=== PATIENT | female | born 1945 | race Caucasian/White ===

== ENCOUNTER 2019-05-26 16:07 | Emergency (ER) | payer MEDICARE, OTHER ==
[~2019-05-26] VITALS: Ht 145 cm; Wt 73.3 kg
--- NOTE | 2019-05-26 16:58 | ED Fall/Injury ---
General Chief Complaint: Trauma-Non Activation Stated Complaint: HEAD LAC, PT FELL Nursing Triage Note: Patient c/o of laceration to right side of her scalp and right knee pain. States that she has fallen multiple times over the past couple of days. Today she reports that she felt as if she blacked out for a second hit but was not certain if she did or not. She then hit her head on the corner of the wall and fell onto her right knee. She states that she twisted her back on Friday when she fell and hit her knee that day too. She reports that her she has a torn patella tendon and it causes her knee to give out and that is generally when she falls. Source: patient Exam Limitations: no limitations History of Present Illness Date Seen by Provider: May 26, 2019 Time Seen by Provider: 16:40 Initial Comments The patient is a pleasant 73-year-old female who presents for evaluation of a closed head injury as well as some right knee pain after a fall. She states that back in November she had a knee replacement at and that she is having competitions of her patellar tendon on the right. She states that she needs to have her patellar tendon replaced and that it sometimes slides out of the way and causes her to fall. She states that over the last few days she is fallen multiple times. She thinks that she may have blacked out briefly during one of these falls but is unsure. Today she hit her head on a corner of a wall and fell onto her right knee. She is alert and oriented 4, calm, and appears to be in no distress this time. Allergies and Home Medications Patient Home Medication List Home Medication List Reviewed: Yes Review of Systems Review of Systems Constitutional: no symptoms reported Eyes: No Symptoms Reported Ears, Nose, Mouth, Throat: no symptoms reported Respiratory: no symptoms reported Cardiovascular: no symptoms reported Gastrointestinal: no symptoms reported Genitourinary: no symptoms reported Musculoskeletal: other (right knee pain) Skin: other (scalp laceration) Psychiatric/Neurological: No Symptoms Reported All Other Systems Reviewed Negative Unless Noted: Yes Past Wyyyvll-Ayrxhm-Tadwzc Hx Past Med/Social Hx: Reviewed Nursing Past Med/Soc Hx Patient Social History Recent Foreign Travel: No Contact w/Someone Who Travel: No Recent Infectious Disease Expo: No Past Medical History [employer] History: Hysterectomy Physical Exam Vital Signs Vital Signs - First Documented 05/26/19 16:15 Temp 36.4 Pulse 86 Resp 16 B/P (MAP) 128/60 (82) Pulse Ox 98 O2 Delivery Room Air Capillary Refill : Less Than 3 Seconds Height, Weight, BMI Height: '" Weight: lbs. oz. 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 as tested, no motor/sensory deficits, alert, normal mood/affect, oriented x 3 Skin: normal color, warm/dry [place] Coma Score Best Eye Response: (4) Open Spontaneously Best Verbal Response: (5) Oriented Best Motor Response: (6) Obeys Commands Procedures/Interventions Wound Location: Scalp Other Wound Location right occipital scalp Wound's Depth, Shape: superficial Wound Explored: clean Irrigated w/ Saline (ccs): 500 Betadine Prep?: No Staple Repair: Stapler 35W Progress pt tolerated repair with 1 staple well Progress/Results/Core Measures Results/Orders Lab Results Laboratory Tests Test 05/26/19 15:58 05/26/19 17:30 Range/Units Urine Color YELLOW Urine Clarity CLEAR Urine pH 6.0 5-9 Urine Specific [place] 1.020 1.016-1.022 Urine Protein NEGATIVE NEGATIVE Urine Glucose (UA) NEGATIVE NEGATIVE Urine Ketones NEGATIVE NEGATIVE Urine Nitrite NEGATIVE NEGATIVE Urine Bilirubin NEGATIVE NEGATIVE Urine Urobilinogen 0.2 NORMAL MG/DL Urine Leukocyte Esterase NEGATIVE NEGATIVE Urine RBC (Auto) NEGATIVE NEGATIVE Urine RBC 0-2 /HPF Urine WBC 0-2 /HPF Urine Squamous Epithelial Cells 5-10 /HPF Urine Crystals NONE /LPF Urine Bacteria NEGATIVE /HPF Urine Casts NONE /LPF Urine Mucus SMALL H /LPF Urine Culture Indicated NO White Blood Count 6.2 4.3-11.0 10^3/uL Red Blood Count 4.16 L 4.35-5.85 10^6/uL Hemoglobin 10.0 L 11.5-16.0 G/DL Hematocrit 34 L 35-52 % Mean Corpuscular Volume 81 80-99 FL Mean Corpuscular Hemoglobin 24 L 25-34 PG Mean Corpuscular Hemoglobin Concent 30 L 32-36 G/DL Red Cell Distribution Width 21.2 H 10.0-14.5 % Platelet Count 245 130-400 10^3/uL Mean Platelet Volume 9.6 7.4-10.4 FL Neutrophils (%) (Auto) 57 42-75 % Lymphocytes (%) (Auto) 21 12-44 % Monocytes (%) (Auto) 17 H 0-12 % Eosinophils (%) (Auto) 4 0-10 % Basophils (%) (Auto) 1 0-10 % Neutrophils # (Auto) 3.6 1.8-7.8 X 10^3 Lymphocytes # (Auto) 1.3 1.0-4.0 X 10^3 Monocytes # (Auto) 1.1 H 0.0-1.0 X 10^3 Eosinophils # (Auto) 0.2 0.0-0.3 10^3/uL Basophils # (Auto) 0.0 0.0-0.1 10^3/uL Sodium Level 138 135-145 MMOL/L Potassium Level 3.8 3.6-5.0 MMOL/L Chloride Level 100 98-107 MMOL/L Carbon Dioxide Level 27 21-32 MMOL/L Anion Gap 11 5-14 MMOL/L Blood Urea Nitrogen 17 7-18 MG/DL Creatinine 0.93 0.60-1.30 MG/DL Estimat Glomerular Filtration Rate 59 BUN/Creatinine Ratio 18 Glucose Level 124 H 70-105 MG/DL Calcium Level 10.3 H 8.5-10.1 MG/DL Corrected Calcium 10.3 H 8.5-10.1 MG/DL Total Bilirubin 0.4 0.1-1.0 MG/DL Aspartate Amino Transf (AST/SGOT) 20 5-34 U/L Alanine Aminotransferase (ALT/SGPT) 13 0-55 U/L Alkaline Phosphatase 119 40-136 U/L Total Protein 6.6 6.4-8.2 GM/DL Albumin 4.0 3.2-4.5 GM/DL My Orders Orders - CASTILLO GRIMM DO Ct Head Wo (05/26/19 16:46) Cbc With Automated Diff (05/26/19 16:46) Comprehensive Metabolic Panel (05/26/19 16:46) Ua Culture If Indicated (05/26/19 16:46) Ekg Tracing (05/26/19 16:46) Knee 3 View Right (05/26/19 16:46) Ice: Apply To Affected Area (05/26/19 16:46) Vital Signs/I&O 05/26/19 16:15 Temp 36.4 Pulse 86 Resp 16 B/P (MAP) 128/60 (82) Pulse Ox 98 O2 Delivery Room Air Blood Pressure Mean: 82 Progress Progress Note : Progress Note @1743 - Patient updated on lab and imaging results. Pt has very mild ttp at right fibular head. She is currently using a knee immobilizer and crutches due to her patellar tendon injury and is already scheduled to see her orthopedic surgeon tomorrow at . Advised non-weightbearing until then. Workup today fails reveal any emergent pathology. Advised taking ibuprofen or Tylenol for pain relief is needed and applying ice to her knee and scalp as well. The patient expresses verbal understanding and agreement with the plan and is stable for discharge. EKG : Comment Normal sinus rhythm, rate of 83, normal axis, no acute ischemic findings noted, no STEMI, reviewed and interpreted by myself. Diagnostic Imaging Comments [facility]. [place], [place] NAME: RAGINI GRAF [facility] REC#: [id number] PT STATUS: REG ER : 1945 PHYSICIAN: CASTILLO GRIMM DO ADMIT DATE: 05/26/19/ER FS Draft Date of Exam:05/26/19 KNEE 3 VIEW RIGHT INDICATION: Right knee pain and swelling. COMPARISON: None available. TECHNIQUE: Three views of the right knee were obtained. FINDINGS: Revision right total knee arthroplasty is in place. There is no acute periprosthetic fracture. There is mild irregularity of the fibular head seen only on the lateral view which could be summation artifact versus a mildly impacted fracture. There is thickened and ill-defined appearance in the region of the patellar tendon which suggests an injury. No appreciable knee joint effusion. IMPRESSION: 1. Irregularity of the fibular head seen only on the lateral view may be artifactual versus a nondisplaced fracture. Correlation for focal tenderness of the fibular head is advised. 2. Thickened appearance of the patellar tendon may relate to patellar tendon injury. Dictated on workstation # [id number] Dict: 05/26/19 1718 Trans: 05/26/19 1722 [facility] [id number] Interpreted by: JOVANY STEELE MD Electronically signed by: Departure Impression Primary Impression: Occipital scalp laceration Additional Impression: Contusion of right knee Disposition: HOME, SELF-CARE Condition: Stable Departure-Patient Inst. Referrals: SLOANE WHITE APRN (PCP) Primary Care Physician Patient Instructions: Laceration Repair With Canones (DC), Minor Head Injury (DC), Contusion (DC) Add. Discharge Instructions: Follow-up with your doctor in the next 1-2 days. Take Tylenol or ibuprofen at home for pain relief is needed and also use ice and elevation for your knee. R eturn to the emergency department for new or worsening symptoms immediately. CASTILLO GRIMM DO May 26, 2019 16:58
--- NOTE | 2019-05-26 17:22 | Diagnostic Imaging Report ---
INDICATION: Right knee pain and swelling. COMPARISON: None available. TECHNIQUE: Three views of the right knee were obtained. FINDINGS: Revision right total knee arthroplasty is in place. There is no acute periprosthetic fracture. There is mild irregularity of the fibular head seen only on the lateral view which could be summation artifact versus a mildly impacted fracture. There is thickened and ill-defined appearance in the region of the patellar tendon which suggests an injury. No appreciable knee joint effusion. IMPRESSION: 1. Irregularity of the fibular head seen only on the lateral view may be artifactual versus a nondisplaced fracture. Correlation for focal tenderness of the fibular head is advised. 2. Thickened appearance of the patellar tendon may relate to patellar tendon injury. Dictated by: Dictated on workstation # [id number]
--- NOTE | 2019-05-26 17:29 | Diagnostic Imaging Report ---
PROCEDURE: CT head without contrast. TECHNIQUE: Multiple contiguous axial images were obtained through the brain without the use of intravenous contrast. Auto Exposure Controls were utilized during the CT exam to meet ALARA standards for radiation dose reduction. INDICATION: Fall. Laceration to right side of head. FINDINGS: There are no CT findings of acute intracranial hemorrhage. There is no evidence of intracranial mass effect or shift. There is no extra-axial collection. There is no hydrocephalus. There are no findings of territorial loss of lino-white differentiation or abnormal low attenuation within the basal ganglia or sam. Posterior fossa demonstrates no acute process. The basilar cisterns are patent. The mastoid air cells appear clear. The paranasal sinuses appear clear. Orbital contents are unremarkable. No acute calvarial abnormality. No calvarial fracture is evident. IMPRESSION: 1. No CT evidence of an acute intracranial abnormality. There is no intracranial hemorrhage. There are no findings of a calvarial fracture. Dictated by: Dictated on workstation # [id number]
[2019-05-26 17:37] LABS: BACTERIA,URINE NEGATIVE /HPF; BILIRUBIN,URINE NEGATIVE (NEGATIVE); CLARITY,URINE CLEAR; COLOR,URINE YELLOW; GLUCOSE, URINE (UA) NEGATIVE (NEGATIVE); KETONES,URINE NEGATIVE (NEGATIVE); LEUKOCYTE ESTERASE ,URINE NEGATIVE (NEGATIVE); NITRITE,URINE NEGATIVE (NEGATIVE); PROTEIN,URINE NEGATIVE (NEGATIVE); RBC,URINE 0-2 /HPF; UROBILINOGEN,URINE 0.2 MG/DL (NORMAL); WBC,URINE 0-2 /HPF
[2019-05-26 17:51] LABS: HEMATOCRIT 34 % (35-52); LYMPHOCYTES % (AUTO) 21 % (12-44); MEAN CORPUSCULAR HEMOGLOBIN 24 PG (25-34); MEAN CORPUSCULAR HGB CONC 30 G/DL (32-36); MEAN CORPUSCULAR VOLUME 81 FL (80-99); MEAN PLATELET VOLUME 9.6 FL (7.4-10.4); MONOCYTES % (AUTO) 17 % (0-12); PLATELET COUNT 245 10^3/uL (130-400); RED CELL DISTRIBUTION WIDTH 21.2 % (10.0-14.5); WHITE BLOOD COUNT 6.2 10^3/uL (4.3-11.0)
[2019-05-26 17:52] LABS: BASOPHILS % (AUTO) 1 % (0-10); EOSINOPHILS # (AUTO) 0.2 10^3/uL (0.0-0.3); EOSINOPHILS % (AUTO) 4 % (0-10); LYMPHOCYTES # (AUTO) 1.3 X 10^3 (1.0-4.0); MONOCYTES # (AUTO) 1.1 X 10^3 (0.0-1.0); NEUTROPHILS # (AUTO) 3.6 X 10^3 (1.8-7.8); NEUTROPHILS % (AUTO) 57 % (42-75)
[2019-05-26 18:03] LABS: POTASSIUM 3.8 MMOL/L (3.6-5.0)
[2019-05-26 18:04] LABS: BILIRUBIN,TOTAL 0.4 MG/DL (0.1-1.0); CALCIUM 10.3 MG/DL (8.5-10.1); CREATININE SERUM 0.93 MG/DL (0.60-1.30); TOTAL PROTEIN 6.6 GM/DL (6.4-8.2)
[2019-05-26 18:42] VITALS: BP 125/65
== END 2019-05-26 18:42 | disposition home or self-care (01) ==
LOC: EDUNIT# 16:07 → ER FS 16:09
DX: S01.01XA Laceration without foreign body of scalp, initial encounter (principal); S80.01XA Contusion of right knee, initial encounter; R40.2142 Coma scale, eyes open, spontaneous, at arrival to emergency department; R40.2252 Coma scale, best verbal response, oriented, at arrival to emergency department; R40.2362 Coma scale, best motor response, obeys commands, at arrival to emergency department; Z96.651 Presence of right artificial knee joint; Z90.710 Acquired absence of both cervix and uterus; W01.198A Fall on same level from slipping, tripping and stumbling with subsequent striking against other object, initial encounter
CPT/HCPCS: 36415; 70450; 73562; 80053; 81000; 85025; 93005

== ENCOUNTER 2019-06-04 13:09 | Emergency (ER) | payer MEDICARE, OTHER | END 2019-06-04 13:26 | disposition home or self-care (01) | LOC: ER FS 13:09 ==

== ENCOUNTER 2020-01-05 21:00 | Emergency (ER) | payer MEDICARE, OTHER ==
[~2020-01-05] VITALS: Ht 147.3 cm; Wt 70.4 kg
--- NOTE | 2020-01-05 21:02 | ED General ---
General Stated Complaint: FALL History of Present Illness Date Seen by Provider: Jan 05, 2020 Time Seen by Provider: 21:06 Initial Comments Patient is a 74 y/o female who comes to the ER this evening for evaluation following a fall. Patient states she slipped on wet concrete when she was walking down a couple stairs outside her house. She was carrying a bowl and lost her balance. She fell backwards and states she did strike her head but did not have LOC. She complains of pain over the occipital region and also states she twisted her right ankle during the fall. She fell from standing height. No LOC. No chest pain, dyspnea, dizziness, syncope. She has been at baseline health lately with no recent illness. Allergies and Home Medications Allergies Coded Allergies: No Known Drug Allergies (Unverified , 01/05/20) Patient Home Medication List Home Medication List Reviewed: Yes Review of Systems Review of Systems Constitutional: no symptoms reported EENTM: no symptoms reported Respiratory: no symptoms reported Cardiovascular: no symptoms reported Gastrointestinal: no symptoms reported Genitourinary: no symptoms reported Musculoskeletal: other (as documented above) Skin: other (minor abrasion over right lower leg) All Other Systems Reviewed Negative Unless Noted: Yes Past Ywzwbcl-[place]-Spsqdx Hx Patient Social History 2nd Hand Smoke Exposure: No Recent Foreign Travel: No Contact w/Someone Who Travel: No Recent Hopitalizations: No Seasonal Allergies Seasonal Allergies: No Past Medical History Surgeries: Yes (Bilateral knee replacements) Hysterectomy, Orthopedic Respiratory: No Cardiac: Yes High Cholesterol, Hypertension 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 oz. kg; 34.00 BMI Method:Actual General Appearance: No Apparent Distress, WD/WN Eyes: Bilateral Eye PERRL, Bilateral Eye EOMI HEENT: PERRL/EOMI, TMs Normal Neck: Full Range of Motion, Non Tender Respiratory: Chest Non Tender, Lungs Clear Cardiovascular: Regular Rate, Rhythm, No Murmur Gastrointestinal: Non Tender, Soft Back: No CVA Tenderness, No Vertebral Tenderness Extremity: Normal Capillary Refill, Other (minor abrasion over bernardino-lateral right distal leg. No gross deformity about the right ankle but + TTP over lateral malleolus. 2+ dp pulses.) Neurologic/Psychiatric: Alert, Oriented x3 Progress/Results/Core Measures Suspected Sepsis SIRS Temperature: Pulse: Respiratory Rate: Blood Pressure / Mean: Results/Orders My Orders Orders - ALISSA ARNOLD DO Ct Head/Cervical Spine Wo (01/05/20 21:12) Ankle 3 View Right (01/05/20 21:12) Tibia Fibula 2 View Right (01/05/20 21:19) Dipht,Pertuss(Acell),Tet Adult (Boostrix (01/05/20 21:45) Medications Given in ED Current Medications Medications Dose Ordered Sig/Cely Route Start Time Stop Time Status Last Admin Dose Admin Diphtheria/ Tetanus/Acell Pertussis 0.5 ml ONCE ONCE IM 01/05/20 21:45 01/05/20 21:46 DC 01/05/20 21:45 0.5 ML Vital Signs/I&O 01/05/20 21:15 Temp 36.5 Pulse 92 Resp 16 B/P (MAP) 178/76 (110) Pulse Ox 94 O2 Delivery Room Air Capillary Refill : Progress Note : Time: 21:24 Progress Note Patient is evaluated immediately on arrival to her room. Overall no distress with PE findings described above. Mechanical fall and no accompanying sx. No CP, syncope, dizziness, lightheadedness. Will do CT scan head/neck and image the right ankle. 22:20: All imaging returned without acute findings. Results are reviewed with the patients and all of her questions are answered. Discharged to home. Recommended to use tylenol/motrin as needed for pain. F/u with PCP or return to the ER for any new or worsening symptoms. Departure Impression Primary Impression: Ankle sprain Additional Impression: Minor head injury Disposition: 01 HOME, SELF-CARE Condition: Stable Departure-Patient Inst. Referrals: SLOANE WHITE APRN (PCP) Primary Care Physician [facility] (Family) Primary Care Physician ALISSA ARNOLD DO Jan 05, 2020 21:02
--- OUTSIDE RECORDS SUMMARY | 2020-01-05 21:05 | XMS REPORT | Continuity of Care Document ---
Author Organization Unknown Address Unknown Phone Unavailable Allergies There is no data. Medications There is no data. Problems Date Dx Coded Attending Type Code Diagnosis Diagnosed By 05/26/2019 SIRISHA CHONG DO Ot R40.2142 COMA SCALE, EYES OPEN, SPONTANEOUS, EMR 05/26/2019 SIRISHA CHONG DO Ot R40.2252 COMA SCALE, BEST VERBAL RESPONSE, ORIENT 05/26/2019 SIRISHA CHONG DO Ot R40.2362 COMA SCALE, BEST MOTOR RESPONSE, OBEYS C 05/26/2019 SIRISHA CHONG DO Ot S01.01XA LACERATION WITHOUT FOREIGN BODY OF SCALP 05/26/2019 SIRISHA CHONG DO Ot S09.90XA UNSPECIFIED INJURY OF HEAD, INITIAL ENCO 05/26/2019 SIRISHA CHONG DO Ot S80.01XA CONTUSION OF RIGHT KNEE, INITIAL ENCOUNT 05/26/2019 SIRISHA CHONG DO Ot W01.198A FALL SAME LEV FROM SLIP/TRIP W STRIKE AG 05/26/2019 SIRISHA CHONG DO Ot Z90.710 ACQUIRED ABSENCE OF BOTH CERVIX AND UTER 05/26/2019 SIRISHA CHONG DO Ot Z96.651 PRESENCE OF RIGHT ARTIFICIAL KNEE JOINT 05/31/2019 SIRISHA CHONG DO Ot R40.2142 COMA SCALE, EYES OPEN, SPONTANEOUS, EMR 05/31/2019 SIRISHA CHONG DO Ot R40.2252 COMA SCALE, BEST VERBAL RESPONSE, ORIENT 05/31/2019 SIRISHA CHONG DO Ot R40.2362 COMA SCALE, BEST MOTOR RESPONSE, OBEYS C 05/31/2019 SIRISHA CHONG DO Ot S01.01XA LACERATION WITHOUT FOREIGN BODY OF SCALP 05/31/2019 SIRISHA CHONG DO Ot S09.90XA UNSPECIFIED INJURY OF HEAD, INITIAL ENCO 05/31/2019 SIRISHA CHONG DO Ot S80.01XA CONTUSION OF RIGHT KNEE, INITIAL ENCOUNT 05/31/2019 SIRISHA CHONG DO Ot W01.198A FALL SAME LEV FROM SLIP/TRIP W STRIKE AG 05/31/2019 SIRISHA CHONG DO Ot Z90.710 ACQUIRED ABSENCE OF BOTH CERVIX AND UTER 05/31/2019 SIRISHA CHONG DO Ot Z96.651 PRESENCE OF RIGHT ARTIFICIAL KNEE JOINT 06/08/[facility] Ot S01.01XD LACERATION WITHOUT FOREIGN BODY OF SCALP 06/08/2019 [facility] X58.XXXD EXPOSURE TO OTHER SPECIFIED FACTORS, SUB Procedures There is no data. Results Test Result Range URIC ACID, SERUM - 03/22/19 14:13 URIC ACID 5.8 mg/dL 2.5-7.0 Complete urinalysis with reflex to cultu re - 05/26/19 15:58 Urine color determination YELLOW NRG Urine clarity determination CLEAR NR G Urine pH measurement by test strip 6.0 5-9 Specific gravity of urine by test strip 1.020 1.016-1.022 Urine protein assay by test strip, semi-quantitative NEGATIVE NEGATIVE Urine glucose detection by automated test strip NE GATIVE NEGATIVE Erythrocytes detection in urine sediment by light micr oscopy NEGATIVE NEGATIVE Urine ketones detection by automated test strip NE GATIVE NEGATIVE Urine nitrite detection by test strip NEGATIVE NEGATIVE Urine total bilirubin detection by test strip NEGA TIVE NEGATIVE Urine urobilinogen measurement by automated test strip (mass/volume) 0.2 mg/dL NORMAL Urine leukocyte esterase detection by dipstick NEG ATIVE NEGATIVE Automated urine sediment erythrocyte cou nt by microscopy (number/high power field) [HPF] NRG Automated urine sediment leukocyte count by microscopy (number/high power field) [HPF] NRG Bacteria detection in urine sediment by light microsco py NEGATIVE NRG Squamous epithelial cells detection in u rine sediment by light microscopy 5-10 NRG Crystals detection in urine sediment by light microsco py NONE NRG Casts detection in urine sediment by light microscopy NONE NRG Mucus detection in urine sediment by light microscopy SMALL NRG Complete urinalysis with reflex to culture NO NRG Complete blood count (CBC) with automate d white blood cell (WBC) differential - 05/26/19 17:30 Blood leukocytes automated count (number/volume) 6.2 10*3/uL 4.3-11.0 Blood erythrocytes automated count (number/volume) 4.16 10*6/uL 4.35-5.85 Venous blood hemoglobin measurement (mass/volume) 10.0 g/dL 11.5-16.0 Blood hematocrit (volume fraction) 34 % 35-52 Automated erythrocyte mean corpuscular volume 81 [ foz_us] 80-99 Automated erythrocyte mean corpuscular h emoglobin (mass per erythrocyte) 24 pg 25-34 Automated erythrocyte mean corpuscular h emoglobin concentration measurement (mass/volume) 30 g/dL 32-36 Automated erythrocyte distribution width ratio 21. 2 % 10.0- 14.5 Automated blood platelet count (count/volume) 245 10*3/uL 130-400 Automated blood platelet mean volume measurement 9.6 [foz_us] 7.4-10.4 Automated blood neutrophils/100 leukocytes 57 % 42-75 Automated blood lymphocytes/100 leukocytes 21 % 12-44 Blood monocytes/100 leukocytes 17 % 0-12 Automated blood eosinophils/100 leukocytes 4 % 0-10 Automated blood basophils/100 leukocytes 1 % 0-10 Blood neutrophils automated count (number/volume) 3.6 10*3 1.8-7.8 Blood lymphocytes automated count (number/volume) 1.3 10*3 1.0-4.0 Blood monocytes automated count (number/volume) 1. 1 10*3 0.0-1.0 Automated eosinophil count 0.2 10*3/uL 0 .0-0.3 Automated blood basophil count (count/volume) 0.0 10*3/uL 0.0-0.1 Comprehensive metabolic panel - 05/26/19 17:30 Serum or plasma sodium measurement (moles/volume) 138 mmol/L 135-145 Serum or plasma potassium measurement (moles/volume) 3.8 mmol/L 3.6-5.0 Serum or plasma chloride measurement (moles/volume) 100 mmol/L 98-107 Carbon dioxide 27 mmol/L 21-32 Serum or plasma anion gap determination (moles/volume) 11 mmol/L 5-14 Serum or plasma urea nitrogen measurement (mass/volume ) 17 mg/dL 7-18 Serum or plasma creatinine measurement (mass/volume) 0.93 mg/dL 0.60-1.30 Serum or plasma urea nitrogen/creatinine mass ratio 18 NRG Serum or plasma creatinine measurement w ith calculation of estimated glomerular filtration rate 59 NRG Serum or plasma glucose measurement (mass/volume) 124 mg/dL 70-105 Serum or plasma calcium measurement (mass/volume) 10.3 mg/dL 8.5-10.1 Serum or plasma total bilirubin measurement (mass/volu me) 0.4 mg/dL 0.1-1.0 Serum or plasma alkaline phosphatase nathan surement (enzymatic activity/volume) 119 U/L 40-136 Serum or plasma aspartate aminotransfera se measurement (enzymatic activity/volume) 20 U/L 5-34 Serum or plasma alanine aminotransferase measurement (enzymatic activity/volume) 13 U/L 0-55 Serum or plasma protein measurement (mass/volume) 6.6 g/dL 6.4-8.2 Serum or plasma albumin measurement (mass/volume) 4.0 g/dL 3.2-4.5 CALCIUM CORRECTED 10.3 mg/dL 8.5-10.1 Encounters ACCT No. Visit Date/Time Discharge Status Pt. Type Provider Facility Loc./Unit Complaint [id number] 10/17/2019 13:20:00 10/17/2019 23:59: 59 [facility] Outpatient [facility] [id number] 03/22/2019 13:40:00 Document Registration [id number] 06/04/2019 13:09:00 019 13:26:00 DIS Outpatient MINGVENNORMA SANTORO DO [facility] FS STAPLE REMOVAL [id number] 05/26/2019 16:09:00 019 18:42:00 DIS Emergency SIRISHA CHONG DO [facility] FS HEAD LAC, PT FELL [id number] 01/05/2020 21:01:[address] Emergency ALISSA ARNOLD DO [facility] FS FALL
[2020-01-05] MEDS ORDERED: TETANUS,DIPTH,PERTUSS P/F (BOOSTRIX) 0.5 ML VIAL IM ONE (21:45)
--- NOTE | 2020-01-05 21:57 | Diagnostic Imaging Report ---
INDICATION: Pain post fall TECHNIQUE: Three views of the right ankle CORRELATION STUDY: None FINDINGS: The bony alignment is anatomic. The talar dome is intact. The ankle mortise is maintained. Partial visualization of hardware within the tibial shaft. There is no acute fracture or dislocation. Mild soft tissue edema. IMPRESSION: Negative for acute bony abnormality of the ankle. Dictated by: Dictated on workstation # [id number]
--- NOTE | 2020-01-05 22:06 | Diagnostic Imaging Report ---
PROCEDURE: CT head and CT cervical spine without contrast. TECHNIQUE: Multiple contiguous axial images were obtained through the brain and cervical spine without the use of intravenous contrast. Sagittal and coronal reformations through the cervical spine were then performed. Auto Exposure Controls were utilized during the CT exam to meet ALARA standards for radiation dose reduction. INDICATION: Status post fall, now with pain in the head through the neck. CORRELATION STUDY: CT head 05/26/2019. FINDINGS: CT head: Generalized atrophic changes with prominence of the ventricles and sulci. There are no abnormal areas of decreased attenuation to suggest edema. There are scattered areas of decreased attenuation likely reflecting small vessel ischemic disease. No intracranial hemorrhage. No midline shift or mass effect. Bony calvarium intact with the visualized. Sinuses clear. CT cervical spine: Trace anterolisthesis of C2 on C3. Trace retrolisthesis of C3 on C4. There is very slight loss of vertebral body heights appearing to be likely chronic, particularly at the C4, C5 and C6 levels. Rather marked disc space narrowing at the C3-C4, C4-C5, C5-C6 and C6-C7 levels. Endplate spurring does result in osseous curvature and narrowing of the neural foramina and spinal canal at its various degrees. Mild asymmetric areas of hypertrophic facet arthropathy which is otherwise intact. Odontoid intact. Lateral mass of C1-C2 are aligned. Prominent ossification in and around the odontoid. IMPRESSION: CT head: 1. Negative for acute intracranial abnormality. CT cervical spine: 1. Negative for acute fracture or traumatic subluxation. 2. Rather pronounced multilevel cervical spondylosis. There is various degrees of osseous narrowing of the foramina and spinal canal. Dictated by: Dictated on workstation # [id number]
--- NOTE | 2020-01-05 22:07 | Diagnostic Imaging Report ---
INDICATION: Pain post fall. TECHNIQUE: AP and lateral views of the right tibia and fibula. CORRELATION STUDY: Right knee, 05/26/2019. FINDINGS: Partial visualization of internal fixation hardware of right knee arthroplasty. The tibia and fibula appear to be otherwise intact. There is no acute fracture. Slight deformity of the proximal fibular shaft likely owing to previous injury. Soft tissues are unremarkable. IMPRESSION: Negative for acute bony abnormality of the leg. Dictated by: Dictated on workstation # [id number]
--- NOTE | 2020-01-05 22:16 | NUR ---
BANDAID APPLIED TO RIGHT LOWER LEG ABRASION. AIR SPLINT APPLIED TO THE RIGHT ANKLE.
[2020-01-05 22:17] VITALS: BP 178/76
--- NOTE | 2020-01-05 22:18 | NUR ---
PT. DECIDED SHE DID NOT WANT THE SPLINT PLACED ON THE RIGHT ANKLE.
== END 2020-01-05 22:18 | disposition home or self-care (01) ==
LOC: EDUNIT# 21:00 → ER FS 21:01
DX: S09.90XA Unspecified injury of head, initial encounter (principal); S93.401A Sprain of unspecified ligament of right ankle, initial encounter; Z96.653 Presence of artificial knee joint, bilateral; Z23 Encounter for immunization; W10.9XXA Fall (on) (from) unspecified stairs and steps, initial encounter; X50.1XXA Overexertion from prolonged static or awkward postures, initial encounter
CPT/HCPCS: 70450; 72125; 73590; 73610; 90471; 90715

== ENCOUNTER → 2020-05-24 | Outpatient (CLI) | payer MEDICARE, OTHER ==
--- NOTE | 2020-05-24 11:53 | Diagnostic Imaging Report ---
INDICATION: Persistent cough. FINDINGS: PA and lateral views. The lungs are well-aerated. There is no air-trapping. No infiltrates. Heart is not enlarged. No pulmonary edema or hilar adenopathy. No pneumothorax or pleural effusion. No bony abnormalities. IMPRESSION: No acute abnormalities. Dictated by: Dictated on workstation # [id number]
== END ==
LOC: RAD FS 11:34
PROVIDERS: ATTEND Nurse Practitioner Family
DX: R05 Cough (principal)
CPT/HCPCS: 71046

== ENCOUNTER → 2020-08-29 | Outpatient (CLI) | payer MEDICARE, OTHER ==
--- NOTE | 2020-08-29 15:47 | Diagnostic Imaging Report ---
Right ribs and chest at 2:16. Indication: Rib pain A single view of the chest and 2 views of the right ribs were obtained. The heart size is within normal limits and stable when compared to 05/24/2020. The lungs are clear. There is no sign of pneumonia or pleural effusion. There is no contusion or pneumothorax identified on the right either. The mediastinum is not widened. There is no evidence for displaced rib fracture on the right. 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 The orthopedic hardware overlying the thoracolumbar junction noted on prior study is also unchanged. Impression: 1. There is no evidence for displaced rib fracture on the right and there is no sign of an injury to the underlying right lung. 2. There is no acute abnormality identified otherwise. Dictated by: Dictated on workstation # [id number]
== END ==
LOC: RAD FS 14:06
PROVIDERS: ATTEND Nurse Practitioner Family
DX: R07.81 Pleurodynia (principal)
CPT/HCPCS: 71101

== ENCOUNTER → 2020-10-17 | Outpatient (CLI) | payer MEDICARE, OTHER ==
--- NOTE | 2020-10-17 16:14 | Diagnostic Imaging Report ---
INDICATION: Thoracic pain, fall. COMPARISON: 05/24/2020 TECHNIQUE: Four radiographs of the thoracic spine dated 10/17/2020. FINDINGS: Postsurgical changes within the visualized portions of the thoracolumbar spine are again identified. No evidence of hardware complication within the [id number]. No significant anterolisthesis or retrolisthesis within the visualized thoracic spine. Chronic vertebral body height loss is noted within the lower thoracic spine within the region of postsurgical changes, appearing similar to the prior exam. Additional mild chronic anterior wedging within the lower thoracic spine is noted, at level immediately superior to the postsurgical changes. This appears stable from prior examination. No new vertebral body height loss. Severe disc space height loss within the lower thoracic spine, superior to the postsurgical changes. Multilevel anterior osteophyte formation. Multilevel lateral osteophyte formation. No acute fracture. IMPRESSION: No acute fracture with scattered degenerative changes, including advanced degenerative changes within the lower thoracic spine at levels immediately superior to the postsurgical changes. Post surgical changes within the thoracolumbar spine are partially visualized without evidence of hardware complication. Dictated by: Dictated on workstation # [id number]
== END ==
LOC: RAD FS 13:22
PROVIDERS: ATTEND Nurse Practitioner Family
DX: M47.814 Spondylosis without myelopathy or radiculopathy, thoracic region (principal); Z98.890 Other specified postprocedural states
CPT/HCPCS: 72070

== ENCOUNTER 2021-06-27 12:23 | Emergency (ER) | payer MEDICARE, OTHER ==
--- OUTSIDE RECORDS SUMMARY | 2021-06-27 12:28 | XMS REPORT | Encounter Summary ---
Author Author [facility] Organization [facility] Address Unknown Phone Unavailable Care Team Providers Care Truck Leasing Manager Name Role Phone Dyllan Carroll MD Unavailable Unavailable Usha Dietrich MD Unavailable Nahomi Crespo FIBER TECHNICIAN Unavailable Unavailable Alan Lyles PLANT PACKER-INSTRUCTOR WARPER Unavailable Miquel Abdi DO [id number] Abbey Ramirez PLANT PACKER-INSTRUCTOR WARPER Unavailable Tatyana Hough RN Unavailable Unavailable Sonya Low RN Unavailable Unavailable Heath Dillon MD Unavailable Treasure Duke LPN Unavailable Unavailable Sharyn Bradley MD [phone] Sharyn Bradley MD PCP [phone] Charlene Dunn NP 21 Reason for Visit * Reason Comments Medication Refill Encounter Details Care Team Description [place] [address] [facility] [address] [place] [address] Essential hypertension 05/20/2021 Refill Internal Medicine: [facility] [place], [address] [place] [address] Social History Date Tobacco Use Types Packs/Day Years Used Never Smoker Smokeless Tobacco: Never Used Comments Alcohol Use Standard Drinks/Week Never 0 (1 standard drink = 0.6 o z pure alcohol) Alcohol Habits Answer Date Recorded How often do you have a drink containing alcohol? Never 10/25/2019 How many drinks containing alcohol do you have on No t asked a typical day when you are drinking? How often do you have six or more drinks on one Not asked occasion? Comment: Not asked Sex Assigned at Date Recorded Female 07/10/2020 12:29 PM CDT Date Recorded COVID-19 Exposure Response 05/02/2021 12:35 PM CDT In the last month, have you been in contact with No / Unsure someone who was confirmed or suspected to have Coronavirus / COVID-19? documented as of this encounter Functional Status Date of Assessment Functional Status Response 03/12/2021 Does the patient have a hearing impairment: No 02/15/2021 Does the patient have a visual impairment: Yes 03/12/2021 Does the patient have impaired ambulation: Yes 03/12/2021 Does the patient have an activity of daily living No (ADL) impairment: 03/12/2021 Does the patient have an instrumental activity of No daily living (IADL) impairment: Date of Assessment Cognitive Status Response 03/12/2021 Does the patient have a cognitive impairment: No documented as of this encounter Ordered Prescriptions Start Date End Date Prescription Sig Dispensed Refills 05/22/2021 metoprolol XL (TOPROL XL) TAKE 1 TABLET 90 tablet 1 100 mg extended release BY MOUTH tabletIndications: DAILY Essential hypertension 05/22/2021 losartan (COZAAR) 25 mg TAKE 1 TABLET 90 tablet 1 tabletIndications: BY MOUTH Essential hypertension DAILY documented in this encounter Miscellaneous Notes * Telephone Encounter - Alejandro Hong LPN - 05/22/2021 10:11 AM CDT Refilled per protocol. Alejandro Hong LPN documented in this encounter Plan of Treatment Not on filedocumented as of this encounter Goals Goal Patient Associated Recent Progress Patient-Stat Aut hor Goal Type Problems ed? Increase Fruits and Vegetables Diet No Risa Matthews RN Recover from illness Hospital Yes Rebeka Choudhury RN Resume normal activities Hospital Yes Rebeka Mei RN documented as of this encounter Visit Diagnoses Diagnosis Essential hypertension Unspecified essential hypertension documented in this encounter Discontinued Medications Start Date End Date Medication Sig Discontinue Reason 01/22/2021 05/22/2021 metoprolol XL (TOPROL XL) Take one 100 mg extended release tablet by tabletIndications: mouth daily. Essential hypertension 01/22/2021 05/22/2021 losartan (COZAAR) 25 mg Take one tabletIndications: tablet by Essential hypertension mouth daily. 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
--- OUTSIDE RECORDS SUMMARY | 2021-06-27 12:28 | XMS REPORT | Clinical Summary ---
Author Author [facility] Organization [facility] Address Unknown Phone Unavailable Care Team Providers Care Jewelry Designer Name Role Phone Dyllan Carroll MD Unavailable Unavailable Usha Dietrich MD Unavailable Nahomi Crespo TRANSCRIPTION TYPIST Unavailable Unavailable Alan Lyles AUCTION CLERK-WOMEN'S SWIM COACH Unavailable Miquel Abdi DO [id number] Abbey Ramirez AUCTION CLERK-WOMEN'S SWIM COACH Unavailable Tatyana Hough RN Unavailable Unavailable Sonya Low RN Unavailable Unavailable Heath Dillon MD Unavailable Treasure Duke TRANSCRIPTION TYPIST Unavailable Unavailable Sharyn Bradley MD 100 [phone] Sharyn Bradley MD PCP [phone] Charlene Dunn NP 21 Source Comments Some departments are not documenting in the electronic medical record. If you d o not see the information that you expected, contact Release of Information in [facility] Information Management department at [phone] for further assistan ce in locating additional records.[facility] Allergies Comments Active Allergy Reactions Severity Noted Date Adhesive Tape (Rosins) BLISTERS High 019 Hydrocodone-Acetaminophen HALLUCINATION High 02/0 05/2020 S Sulfa (Sulfonamide NAUSEA AND Low 07/24/2010 Antibiotics) VOMITING Medications End Date Status Medication Sig Dispensed Refills Start Date Active loratadine (CLARITIN) 10 Take 1 Tab by 90 Tab 3 mg tablet mouth daily 5 as needed. Additional Information Patient taking differently: 10 mg Oral DAILY, Informant: Self, Reported on 10/24/2019 Active atorvastatin (LIPITOR) 40 Take 1 tablet 0 09/17 mg tablet by mouth at 9 bedtime daily. Active acetaminophen SR(+) Take two 30 tablet 0 (TYLENOL) 650 mg tablet tablets by 9 mouth twice daily. HOLD while on Hydrocodone/A cetaminophen Additional Information Patient taking differently: 1,300 mg Oral TWICE DAILY, (No instructions reported), Informant: Self, Reported on 01/15/2021 Active famotidine (PEPCID) 20 mg Take 20 mg by 0 tablet mouth twice daily. Active calcium carbonate/vitamin Take 1 tablet 0 D-3 (OSCAL-500+D) 1250 by mouth mg/200 unit tablet daily. Calcium Carb 1250mg delivers 500mg elemental Ca Active iron,carbonyl-vitamin C Take 1 tablet 0 (VITRON-C) 65 mg iron- by mouth at 125 mg TbEC bedtime daily. (Vitron-C) Active Docusate Sodium 100 mg Take 1 tablet 120 tablet 0 1 tab twice daily 9 for constipation. Take when using pain medications. Active melatonin 5 mg chew Chew by 0 mouth. Active methotrexate 2.5 mg/mL Take 1.25 mg 0 oral solution by mouth. Active difluprednate (DUREZOL) Apply one 5 mL 1 0.05 % ophthalmic drop drop to left 1 eye as directed four times daily. Active ofloxacin (FLOXIN) 0.3 % Apply one 5 mL 0 0 ophthalmic solution drop to left 1 eye as directed four times daily. Active prednisolone acetate Apply one 10 mL 11 04/13 (PRED FORTE) 1 % drop to left 1 ophthalmic suspension eye as directed twice daily. Active hydrOXYzine HCL (ATARAX) TAKE 1 TABLET 120 tablet 3 25 mg tabletIndications: BY MOUTH 3 1 Generalized anxiety TIMES DAILY disorder NEEDED Active losartan (COZAAR) 25 mg TAKE 1 TABLET 90 tablet 1 tabletIndications: BY MOUTH 1 Essential hypertension DAILY Active metoprolol XL (TOPROL XL) TAKE 1 TABLET 90 tablet 1 100 mg extended release BY MOUTH 1 tabletIndications: DAILY Essential hypertension Active acyclovir (ZOVIRAX) 400 TAKE 1 TABLET 180 tablet 4 mg tablet BY MOUTH 1 EVERY 12 HOURS TO PREVENT RECURRENT HERPES SIMPLEX INFECTION Active amitriptyline (ELAVIL) 50 Take one 90 tablet 3 mg tabletIndications: tablet by 1 Adjustment disorder with mouth at depressed mood bedtime daily. Active gabapentin (NEURONTIN) Take three 720 capsule 3 300 mg capsule capsules by 1 mouth every morning AND one capsule daily after lunch AND four capsules at bedtime daily. 06/15/2021 Discontinued (Reorder) amitriptyline (ELAVIL) 50 Take one 90 tablet 3 mg tabletIndications: tablet by 0 Adjustment disorder with mouth at depressed mood bedtime daily. 06/15/2021 Discontinued (Reorder) gabapentin (NEURONTIN) Take three 720 capsule 3 300 mg capsule capsules by 1 mouth every morning AND one capsule daily after lunch AND four capsules at bedtime daily. 06/15/2021 Discontinued duloxetine (CYMBALTA) Take one 90 capsule 3 0 60 mg capsule capsule by 1 mouth daily. Active Problems Problem Noted Date Thoracic radiculopathy 01/17/2021 DDD (degenerative disc disease), cervical 01/17/2021 Facet arthropathy 01/17/2021 Mixed hyperlipidemia 01/17/2021 Pupillary membrane of left eye 11/24/2020 Last Assessment & Plan: Formatting of this note might be differ ent from the original. OCT OS: no macular edema, mild ERM preserve d contour Continue pred tid per Dr. Messer last no te PF artificial tears 6x/day, and genteal gel/ointment qhs F/u Dr. Messer, retina PRN Epiretinal membrane (ERM), bilateral 11/07/2020 Last Assessment & Plan: Formatting of this note might be differ ent from the original. [employer] OCT OS: mild ERM, no edema Degenerative drusen, right 11/07/2020 Generalized anxiety disorder 09/27/2020 HTN (hypertension) 10/23/2019 Malignant glaucoma of left eye 10/15/2019 Last Assessment & Plan: Formatting of this note might be differ ent from the original. IOP too high Patient has not been on Combigan Re-start combigan TID Continue Latanoprost QHS Re-start Diamox 500mg BID Going to see Dr. Whitaker tomorrow Keratitis 09/12/2019 Vitamin D deficiency 05/18/2019 Adjustment disorder with depressed mood 03/24/2019 Iron deficiency anemia 12/27/2018 History of DVT (deep vein thrombosis) 12/27/2018 Wound dehiscence 12/12/2018 B12 deficiency 01/22/2018 Last Assessment & Plan: Formatting of this note might be differ ent from the original. Most current B12 368. Plan: - B12 IM injections monthly Gastroesophageal reflux disease without esophagitis 01/08/2018 Seasonal allergies 01/08/2018 Calcium pyrophosphate arthropathy 10/02/2017 Failed orthopedic implant 08/28/2017 Overview: Formatting of this note might be differ ent from the original. Added automatically from request for infante [email or web address] [id number] Idiopathic peripheral neuropathy 07/24/2017 Overview: Formatting of this note might be differ ent from the original. Subtle distal symmetric sensory loss. B 12 low in the past and was replaced. Last Assessment & Plan: Formatting of this note might be differ ent from the original. Symtoms slightly worse. Lab workup was not entirely completed in the past. TSH and SPEP unremarkable. B12 low end of normal. Plan: - Inrease gabapentin to 900mg bid - PT for evaluation and treatment of ga it and balance - has had success with a walker with hand breaks - Presecription for walker with hand br eaks - B12 IM injections monthly - Emu oil to feet Leg cramps 07/24/2017 Overview: Formatting of this note might be differ ent from the original. Unclear etiology. Screening labs were w ithout contributing factors. L ast Assessment & Plan: Formatting of this note might be differ ent from the original. Routine screening labs were normal. Can continue to use "leg cramps" if helping. Can also drink one 8oz glass o f tonic water daily as this often helps with cramps. Shoulder arthritis 04/07/2017 At high risk for complication of fracture 08/02/2016 Paresthesias 04/05/2016 Overview: Formatting of this note might be differ ent from the original. Acute onset of right face, arm, leg jessie nful paresthesias in March 2016. Etiology: Presumed thalamic ischemic st roke L ast Assessment & Plan: Formatting of this note might be differ ent from the original. Painful paresthesias are responding wel l to increased dose of gabapentin and tolerating well. Continue gabapenti n to 600mg three times daily. Obesity (BMI 30.0-34.9) 12/31/2014 Inflammatory arthritis 11/18/2014 Back pain 06/16/2014 Lesion of tongue 01/25/2013 Multinodular goiter 05/14/2012 Generalized osteoarthritis 07/16/2011 Encounter for long-term (current) use of high-risk me dication 07/16/2011 Adhesive capsulitis 07/16/2011 Low back pain 07/16/2011 Other plastic surgery for unacceptable cosmetic appea erica 12/27/2010 Hypertrophy of breast 12/27/2010 Other specified erythematous condition(695.89) 12/27 Sjogren's syndrome 12/25/2010 Absence of breast, acquired 10/03/2010 HX: breast cancer 06/03/2009 Overview: Formatting of this note might be differ ent from the original. DIAGNOSIS: Right breast cancer, dx 1989 PROCEDURES: 1. Lumpectomy/brachytherapy/whole breas t radiation therapy, 1989 2. Right mastectomy/TRAM flap reconstru ction with Dr. Garcia, 10/03/10 3. Excision of fat necrosis, right nipp le reconstruction, and a left breast reduction mastopexy with Dr. Garcia , 05/2011 HISTORY: Ms. Hastings is a 68 yo, caucas autumn female with a history of right UOQ breast cancer treated with lumpecto my and axillary lymph node dissection followed by brachytherapy an d whole breast radiation [place] [address] Booth. She developed post treatmen t infections and dystrophic calcifications. She developed an open s ore in the right UOQ in a firm, calcified area in June,. Dr. Mauricio crespo did a right mastectomy/TRAM flap reconstruction 10/03/10 for non-hea ling ulcerations/calcifications. Since that time she has had areas of fa t necrosis excised from her right breast, right nipple reconstruction, an d a left breast reduction mastopexy in May 2011. On 09/29/12 a 6 mm cl uster of microcalcifications were noted on screening mammograms; stereota ctic biopsy 10/08/12 revealed benign breast tissue and fat necrosis, no evid ence of malignancy. Follow-up mammogram in March 2013 was BIRAD 2. PMH: HTN, Rheumatoid arthritis, scolio sis, spinal stenosis, osteoporosis, Sjogren's syndrome FAMILY HISTORY: Maternal grandmother a nd maternal great-grandmother had breast cancer Total knee replacement status 10/05/2008 Primary osteoarthritis involving multip le joints Osteoporosis Abnormal thyroid function test Resolved Problems Problem Noted Date Resolved Date Acute primary angle-closure glaucoma 10/23/2019 0 10/25/2019 Essential hypertension 01/08/2018 01/17/2021 Seronegative rheumatoid arthritis 05/27/201711/13 Pseudogout involving multiple joints 03/21/2015 0 11/27/2017 Joint pain 03/17/2012 10/02/2017 Fibromyalgia 07/16/2011 08/12/2018 Tenosynovitis of finger, hand, or wrist 07/16/2011 10/02/2017 Encounters Care Team Description Date Type Specialty Angella Maciel MD Adjustment disorder with depressed mood 06/15/2021 Office Visit Neurology 06/15/2021 Travel Félix Clement MD Other (Therapy POT) 05/25/2021 Telephone Rheumatology Darek Messer MD 05/21/2021 Refill Ophthalmology Sharyn Bradley MD Essential hypertension 05/20/2021 Refill General Internal Oh Kavon Echavarria MD 05/16/2021 Refill Neurology Sharyn Bradley MD Brim, Tara J, PhD 05/15/2021 Clinical General Internal Oh myron Support Telehealth Sharyn rBadley MD Generalized anxiety disorder 05/05/2021 Refill Internal Medicine Micha Hatfield MD 05/02/2021 Hospital Radiology Encounter Micha Hatfield MD Cervical radiculopathy (Primary Dx); Cervical stenosis of spine 05/02/2021 Procedure visit Anesthesia Pain 05/02/2021 Travel Micha Hatfield MD Pre-Visit Planning 05/01/2021 Telephone Anesthesia Pain Micha Hatfield MD Thoracic radiculopathy (Primary Dx) 05/01/2021 Orders Only Anesthesia Pain Darek Messer MD Rheumatoid arthritis involving multiple sites with positive rheumatoid factor (HCC) (Primary Dx); HSV (herpes simplex virus) dendritic keratitis (HX OF); Malignant glaucoma of left eye; Sjogren's syndrome, with unspecified organ involvement (HCC) 04/13/2021 Office Visit Ophthalmology Félix Clement MD Other (PT POC) 04/13/2021 Telephone Rheumatology 04/13/2021 Travel Sharyn Bradley MD Brim, Tara J, PhD 04/03/2021 Clinical General Internal Me dicine Support Telehealth Heath Dillon MD 03/30/2021 Hospital Radiology Encounter Heath Dillon MD Cervical stenosis of spine (Primary Dx) 03/30/2021 Office Visit Orthopedic Surgery 03/30/2021 Travel Heath Dillon MD Lumbar stenosis with neurogenic claudica tion (Primary Dx) 03/29/2021 Orders Only Orthopedic Surgery from Last 3 Months Immunizations Name Administration Dates Next Due COVID-19 (MODERNA), mRNA 02/02/2021, 01/05/2021 vacc, 100 mcg/0.5 mL (PF) Flu Vaccine =>65 YO 05/31/2019, 06/12/2018, High-Dose (PF) Flu Vaccine Quadrivalent 06/01/2019 =>3 Yo Flu Vaccine Quadrivalent 08/30/2014 =>3 Yo (Preservative Free) Flu Vaccine Trivalent =>3 11/30/2013 YO Flu Vaccine Trivalent >64 06/28/2016, 07/06/2015 Yo High-dose (Preservative Free) Pneumococcal Vaccine 04/07/2020, 07/06/2015 (23-Brenda Adult) Pneumococcal 07/06/2015, 11/30/2013 Vaccine(13-Brenda Peds/immunocompromised adult) Tdap Vaccine 01/05/2020, 10/15/2018, Varicella-Zoster Vaccine 10/15/2018, 10/15/2011 - live (ZOSTAVAX) Zoster Vaccine 04/14/2020 Recombinant, Adjuvanted (shingles) IM (vial 2 of 2)(SHINGRIX) Surgical History Surgery Date Site/Laterality Comments HX BACK SURGERY 01/13/1995 - low back 02/12/1995 HX FOOT SURGERY 09/15/2000 - Left 09/14/2001 HX CARRILLO AND BSO 02/13/1974 - Bilateral 03/14/1974 HX TONSILLECTOMY Bilateral CATARACT REMOVAL SPINE SURGERY 09/15/2013 - 09/14/2014 HX BREAST BIOPSY 05-26-90, Right 06-01-90 HX BREAST LUMPECTOMY 07/29/1990 Right w radium implants ([place]) BREAST RECONSTRUCTION 10/03/10 Right Tram fla p-[place] HI TATTOOING INCL 11/14/2011 MICROPIGMENTATION 6.1-20.0 CM SPINE SURGERY 11/13/2012 - 12/13/2012 BONY PELVIS SURGERY 06/15/2016 Left - 07/15/2016 HI INJECTION SINGLE 04/10/2017 TENDON ORIGIN/INSERTION HX MASTECTOMY 10/03/2010 Right KNEE REPLACEMENT 09/22/1996 Right KNEE REPLACEMENT 09/15/2008 - Left 09/14/2009 REVISION TOTAL KNEE 11/30/2018 Knee/Right REVISION A RTHROPLASTY TOTAL KNEE RIGHT performed ARTHROPLASTY by Dyllan Carroll MD at [facility] OR/PERIOP Medical devices from this surgery are i n the Implants section. KNEE JOINT MANIPULATION 12/28/2018 Knee/Right MANIPU LATION KNEE JOINT UNDER GENERAL ANESTHESIA performed by Mo Pope MD at [facility] OR/Periop KERATOPLASTY 09/21/2019 Eye/Left KERATOPLASTY - PENETRATING - PSEUDOPHAKIA performed by Darek Messer MD at [facility] Medical devices from this surgery are i n the Implants section. EYE SURGERY 09/21/2019 Eye/Left INTRAVITREAL IN JECTION PHARMACOLOGIC AGENT performed by Darek Messer MD at [facility] OR[facility]Periop Medical devices from this surgery are i n the Implants section. EYELID/ EYELASH SURGERY 09/21/2019 Eye/Left CONSTR UCTION INTERMARGINAL ADHESION/ MEDIAN TARSORRHAPHY/ CANTHORRHAPHY performed b Darek Woodward MD at [facility] OR/[facility] Medical devices from this surgery are i n the Implants section. EYE SURGERY 09/21/2019 Eye/Left PLACEMENT AMNIO TIC MEMBRANE ON OCULAR SURFACE performed by Darek Messer MD at [facility] Medical devices from this surgery are i n the Implants section. VITRECTOMY 10/16/2019 Eye/Left PARS PLANA MECH ANICAL VITRECTOMY WITH LATERAL TARSORRHAPHY performed by Padmini Jay MD at [facility] OR/[facility] Medical devices from this surgery are i n the Implants section. EYE SURGERY 10/24/2019 Eye/Left INCISIONAL TONY RING ADHESIONS OF INTERIOR SEGMENT EYE - GONIOSYNECHIAE performed by Darek Messer MD at [facility] OR/Periop EYELID/ EYELASH SURGERY 10/24/2019 Eye/Left CONSTR UCTION INTERMARGINAL ADHESION/ MEDIAN TARSORRHAPHY/ CANTHORRHAPHY performed b y Darek Messer MD at [facility] OR/Periop VITRECTOMY 10/24/2019 Eye/Left ANTERIOR PARTIA L REMOVAL VITREOUS - 23 GAUGE performed by Darek Messer MD at [facility] OR[facility]iop ABSCESS DRAINAGE 03/26/1991 Right right breast abcess ([place])03/26/91 I&D right breast abcess ([place]) BREAST SURGERY 04/12/1991 Right revision right breast abcess cavity ([place]) CATARACT REMOVAL 07/24/2020 Eye/Left LASER DISCISS ION SECONDARY MEMBRANOUS CATARACT performed by Darek Messer MD at 2 OR VITRECTOMY 11/23/2020 Eye/Left PARS PLANA MECH ANICAL VITRECTOMY performed by Karuna Jay MD at 2 OR EYE SURGERY 11/23/2020 Eye/Left INCISIONAL TONY RING ADHESIONS OF INTERIOR SEGMENT EYE - POSTERIOR SYNECHIAE performed by Karuna Jay MD at [facility] OR GLAUCOMA SURGERY 09/15/2019 - 09/14/2020 Medical History Medical History Date Comments Osteoarthritis RA (rheumatoid arthritis) ([facility]) History of right breast cancer 1989 DCIS ri ght breast HTN (hypertension) Scoliosis Spinal stenosis Radiation therapy 1989 right brachytherapy and whole breast Sjogren's disease (HCC) Osteoporosis AR (allergic rhinitis) GERD (gastroesophageal reflux disease) Deep vein thrombosis (DVT) ([facility]) 11/2018 right calf Limb alert care status do not use right arm Hx of methotrexate therapy Breast cancer (HCC) 1990 radiation Hyperlipidemia Personal history of radiation therapy 07/29/1990 radium [place] ([place]) Personal history of radiation therapy 1990 45 Gy External beam XRT ([facility] in [place], [place]) Genetic testing 03/06/2020 [employer] [facility] Cancer Test: Negative, no mutation or VUS Covid-19 04/19/2020 Family History Medical History Relation Name Comments Other Brother Accident 1969 Tumor Daughter Maria at 3 weeks Cataract Father Depression Father Diabetes Type II Father Heart problem Father Stroke Father Cancer-Breast Maternal Grandmother Cancer-Uterine Maternal Grandmother Arthritis Mother Cancer-Thyroid Mother Cataract Mother Depression Mother Heart problem Mother Cancer-Breast Other MGGM Diabetes Paternal Grandfather Cancer-Colon Paternal Grandmother Cancer-Uterine Paternal Grandmother Cancer-Hematologic Son [facility] Follows esdras Chavez Amblyopia Neg Hx Blindness Neg Hx Glaucoma Neg Hx Strabismus Neg Hx Relation Name Status Comments Brother (Age 24) Daughter Maria (Age 3weeks) Father Cardiovascular diea se (Age 74) Maternal Grandfather Maternal Grandmother Mother Alzheimer's (Age 88) Other Other Angel Alive Paternal Grandfather Paternal Grandmother Son [facility] Alive Social History Date Tobacco Use Types Packs/Day Years Used Never Smoker Smokeless Tobacco: Never Used Tobacco Cessation: Counseling Given: No Comments Alcohol Use Standard Drinks/Week Never 0 [...] PM CDT Date Recorded COVID-19 Exposure Response 06/15/2021 2:43 PM CDT In the last month, have you been in contact with No / Unsure someone who was confirmed or suspected to have Coronavirus / COVID-19? Obstetrics History Term Pre Abrt (TAB) (SAB) (Ect) Mult Lvng Comments Grav Para 7 3 Date GA Total Labor Labor/2nd/3rd Weight Sex Delivery Anes PTL Matilde A1 A5 Name Clin Outcome Para Para Para Last Filed Vital Signs Reading Time Taken Comments Vital Sign 151/83 06/15/2021 3:24 PM CDT Blood Pressure 78 06/15/2021 3:24 PM CDT Pulse 36.6 C (97.8 F) 05/02/2021 12:52 PM CDT Temperature 16 03/12/2021 10:37 AM CDT Respiratory Rate 98% 05/02/2021 1:21 PM CDT Oxygen Saturation - - Inhaled Oxygen Concentration 79.6 kg (175 lb 6.4 oz) 06/15/2021 3:24 PM CDT Weight 147.3 cm (4' 9.99") 06/15/2021 3:24 PM CDT Height 36.67 06/15/2021 3:24 PM CDT Body Mass Index Plan of Treatment Health Maintenance Due Date Last Done Comments MEDICARE ANNUAL WELLNESS 1945 VISIT SHINGLES RECOMBINANT 06/09/2020 04/14/2020 VACCINE (2 of 2) COVID-19 VACCINE (3 - 03/02/2021 02/02/2021, Moderna risk 3-dose 01/05/2021 series) INFLUENZA VACCINE 04/15/2021 06/13/2020 (Previously completed), 06/01/2019, 05/31/2019, Additional history exists PHYSICAL (COMPREHENSIVE) 01/17/2022 01/17/2021, EXAM 06/30/2019, 01/08/2018, Additional history exists BREAST CANCER SCREENING 03/12/2022 03/12/2021, 03/06/2020, 12/25/2018, Additional history exists COLORECTAL CANCER 03/10/2027 03/10/2017, SCREENING 03/07/2017 (Previously completed) DTAP/TDAP VACCINES (4 - 01/04/2030 01/05/2020, Td or Tdap) 10/15/2018, 11/01/2014 HEPATITIS C SCREENING Completed 05/18/2019 OSTEOPOROSIS Completed 11/17/2019, SCREENING/MONITORING 08/14/2016, 06/14/2014, Additional history exists PNEUMONIA (PPSV23) Completed 04/07/2020, VACCINE 07/06/2015, 07/06/2015, Additional history exists Goals Goal Patient Associated Recent Progress Patient-Stat Aut hor Goal Type Problems ed? Increase Fruits and Vegetables Diet No Risa Matthews, ESTUARDO Recover from illness Hospital Yes Rebeka Choudhury, ESTUARDO Resume normal activities Hospital Yes Rebeka Mei RN Implants Device Identifier Shelf Expiration Date Model / Serial / L ot Implanted Type Area Manufactur er 11/30/2018 [id number] / NA / NA Washer 7mm 4mm Elbow Periarticular Right: Knee ZI MMER Small Orthopedic - Sna KATRINA Implanted: Qty: 2 on 11/30/2018 by Dyllan Carroll MD at [facility] 02/12/2027 [id number] / NA / [id number] Adapter Femoral Sigma Neutral Knee Right: Knee Ja ndJ:DEPU [place] - Sna Y:DEPUY Implanted: Qty: 1 on 11/30/2018 by ORTHOPEDIC Dyllan Carroll MD at [facility] 07/15/2027 [id number] / NA / [id number] Adapter Femoral Sigma 5d Offset Right: Knee JandJ :DEPU Knee [place] - Sna Y:DEPUY Implanted: Qty: 1 on 11/30/2018 by ORTHOPEDIC Dyllan Carroll MD at [facility] 04/14/2027 [id number] / NA / [id number] Stem Femoral 75mm 12mm Press Fit Right: Knee Jand J:DEPU [place] Flute Knee - Sna Y:DEPUY Implanted: Qty: 1 on 11/30/2018 by ORTHOPEDIC Dyllan Carroll MD at [facility] 11/13/2027 [id number] / NA / [id number] Tray Tibial 69.6x45.8x15mm Mbt 3 Right: Knee Jand J:DEPU Knee Cemented Revision 61.8 - Sna Y:DEPUY Implanted: Qty: 1 on 11/30/2018 by ORTHOPEDIC Dyllan Carroll MD at [facility] 09/14/2026 [id number] / NA / [id number] Sleeve Tibial 37mm Mbt Knee Porous Right: Knee Ja ndJ:DEPU Revision - Sna Y:DEPUY Implanted: Qty: 1 on 11/30/2018 by ORTHOPEDIC Dyllan Carroll MD at [facility] 07/15/2024 [id number] / NA / [id number] Augment Femoral 8mm Pfc Sigma Tc3 3 Right: Knee J andJ:DEPU Knee Posterior Titanium - Sna Y:DEPUY Implanted: Qty: 1 on 11/30/2018 by ORTHOPEDIC Dyllan Carroll MD at [facility] 01/12/2019 [id number] / NA / [id number] Insert Tibial 3 22.5mm Knee Uhmwpe Right: Knee Ja ndJ:DEPU Rotate Platform Pfc Sigma - Sna Y:DEPUY Implanted: Qty: 1 on 11/30/2018 by ORTHOPEDIC Dyllan Carroll MD at [facility] 11/30/2018 [id number] / NA / NA Screw Bone 3.5mm 2.5mm 38mm Right: Knee KATRINA Stainless Steel Small Cortical - KATRINA US Sna Implanted: Qty: 1 on 11/30/2018 by Dyllan Carroll MD at [facility] 11/30/2018 [id number] / NA / NA Screw Bone 3.5mm 2.5mm 34mm Right: Knee KATRINA Stainless Steel Small Hexagon - Sna KATRINA US Implanted: Qty: 1 on 11/30/2018 by Dyllan Carroll MD at [facility] 03/14/2020 [id number] / NA / [id number] Cement Bone Smartset Gentamicin Right: Knee J and J 40gm High Viscosity - Sna HEALTHCARE Implanted: Qty: 2 on 11/30/2018 by : Dyllan Raymond MD at [facility] 09/14/2023 [id number] / NA / [id number] Dome Patellar 38mm Pfc Sigma Small Right: Knee Ja ndJ:DEPU Oval Knee Uhmwpe 3 Peg - Sna Y:DEPUY Implanted: Qty: 1 on 11/30/2018 by ORTHOPEDIC Dyllan Carroll MD at [facility] 02/13/2024 [id number] / NA / [id number] Stem Femoral 75mm 14mm Press Fit Right: Knee Jand J:DEPU [place] Flute Knee - Sna Y:DEPUY Implanted: Qty: 1 on 11/30/2018 by ORTHOPEDIC Dyllan Carroll MD at [facility] 02/13/2024 [id number] / NA / [id number] Component Femoral 3 [id number] Knee Right: Knee Jand J:DEPU Right Cruciate Stabilize - Sna Y:DEPUY Implanted: Qty: 1 on 11/30/2018 by ORTHOPEDIC Dyllan Carroll MD at [facility] 02/13/2024 [id number] / NA / [id number] Sleeve Adapter 31mm [place] Knee Right: Knee Ja ndJ:DEPU Femoral Fully Porous - Sna Y:DEPUY Implanted: Qty: 1 on 11/30/2018 by ORTHOPEDIC Dyllan Carroll MD at [facility] 07/15/2027 [id number] / NA / [id number] Augment Femoral 4mm Pfc Sigma Tc3 3 Right: Knee J andJ:DEPU Knee Posterior Titanium - Sna Y:DEPUY Implanted: Qty: 1 on 11/30/2018 by ORTHOPEDIC Dyllan Carroll MD at [facility] 2019 [id number] / [id number] / [id number] Cornea Right Full - [id number] Left: Cornea SA VING Implanted: Qty: 1 on 09/21/2019 by SITE Darek Messer MD at [facility] 03/30/2020 [id number] / [id number] / [id number] Graft Amniograft Cryopreserved Left: Cornea BIO-TI SSUE Amniotic Membrane Wound - INC [id number] Implanted: Qty: 1 on 09/21/2019 by Darek Messer MD at [facility] 05/15/2024 [id number] / [id number] / [id number] Graft Soft Tissue 1.5x1.5cm Left: Eye [employer] Tutoplast Pericardium Allograft - [id number] Implanted: Qty: 1 on 10/16/2019 by Karuna Jay MD at [facility] Device Identifier Shelf Expiration Date Model / Serial / L ot Explanted Type Area Manufactur er 11/30/2018 / NA / NA Right Aseptic Failed Total Knee Knee Right: Knee BIOMET Hardware Implanted >20 Years Ago Explanted: Qty: 1 on 11/30/2018 at [facility] Procedures Comments Procedure Name Priority Date/Time Associated Diag nosis FLUORO GUIDANCE FOR INJ Routine 05/02/2021 Thorac ic radiculopathy RAD 1:05 PM CDT HI NJX AA&/STRD TFRML EPI Routine 05/02/2021 Cerv ical radiculopathy CERVICAL/THORACIC EA ADDL 12:[address] enosis of spine HI NJX AA&/STRD TFRML EPI Routine 05/02/2021 Cerv ical radiculopathy CERVICAL/THORACIC 1 LEVEL 12:[address] enosis of spine SCOLIOSIS EOS AP/LAT Routine 03/30/[address] enosis with 2:07 PM CDT neurogenic claudication from Last 3 Months Results * FLUORO GUIDANCE FOR INJ RAD (05/02/2021 1:05 PM CDT) Specimen Narrative Performed At This order has been auto finalized and does not conta in a result. [facility] Performing Organization Address City/State/ZIP Code P nora Number [facility] * SNR/TF CRV/THRC (05/02/2021 12:15 PM CDT) Narrative Performed At Micha Hatfield MD 05/02/2021 3:46 PM OTHER OUT SIDE LAB SNR/TF CRV/THRC Procedure: transforaminal epidural Laterality: right on 05/02/2021 12:15 PM Location: cervical - C4-5 and C5-6 Consent: Consent obtained: written Consent given by: patient Risks discussed: allergic reaction, ble eding, bruising, infection, nerve damage, no change or worsening in pain, reaction to medication, seizure, swelling and weakness Alternatives discussed: alternative aarti atment, delayed treatment and no treatment Discussed with patient the purpose of t he treatment/procedure, other ways of treating my condition, including no treatment/ procedure and the risks and benefits of the alternatives. Crispin nt has decided to proceed with treatment/procedure. [place] Protocol: Relevant documents: relevant documents present and verified Site marked: the operative site was padmini quevedo Patient identity confirmed: Patient alondra ntify confirmed verbally with patient. Time out: Immediately prior to procedur e a "time out" was called to verify the correct patient, procedure, equipme nt, manager support and site/side marked as required Procedures Details: Indications: pain Prep: chlorhexidine Patient position: prone Estimated Blood Loss: minimal Specimens: none Number of Joints: 2 Guidance: fluoroscopy Contrast: Procedure confirmed with cont rast under live fluoroscopy. Needle and Epidural Catheter: quincke Needle size: 25 G Injection procedure: Incremental inject ion and Negative aspiration for blood Patient tolerance: Patient tolerated th e procedure well with no immediate complications. Pressure was applied, an d hemostasis was accomplished. Outcome: Pain relieved Comments: Following negative aspiration and appro priate contrast spread, 1.25mL of lidocaine 1% with dexamethasone 7mg was injected at each level. Performing Organization Address City/State/ZIP Code P nora Number OTHER OUTSIDE LAB * SCOLIOSIS EOS AP/LAT (03/30/2021 2:07 PM CDT) Specimen Impressions Performed At 1. In keeping with prior numbering, posterior spina l fusion [id number], [facility] RESULTS bilateral iliac screws. Unchanged marke d anterior wedging of T8 and T9, with moderate degenerative disc disease T6-T 10. T12 compression fracture poorly evaluated. Marked osteopenia, with diff icult to visualize lumbar spine vertebral bodies. The left hemipelvis is not well visualized due to osteopenia and penetration/technique. 2. Severe arthrosis of the right grea ter than left glenohumeral joint. Surgical clips project over the right h emithorax. At least moderate bilateral coxarthrosis and symphysis pubis arthro sis. Finalized by Dave Zamora M.D. on 03/15 2:22 PM. Dictated by Dave Zamora M.D. on 03/30/2021 2:20 PM. Narrative Performed At Scoliosis Survey. [facility] RES[facility] CLINICAL INDICATION: 75 years Female; C omplaint of pain in back. Thoracolumbar spine surgery follow-up care. COMPARISON: Scoliosis survey from 2020 Procedure Note Interface, Radiant Results - 03/30/2021 2:25 PM CDT Scoliosis Survey. CLINICAL INDICATION: 75 years Female; Complaint of pain in back. Thoracolumbar spine surgery follow-up care. COMPARISON: Scoliosis survey from 11/28/2020 IMPRESSION 1. In keeping with prior numbering, pos terior spinal fusion [id number], bilateral iliac screws. Unchanged marked anterior wedging of T8 and T9, with moderate degenerative disc disease T6-T10. T12 compression fracture poorly evaluated. Marked osteopenia, with difficult to visualize lumbar spine vertebral bodies. The left hemipelvis is not well visualized due to osteopenia and penetration/technique. 2. Severe arthrosis of the right greate r than left glenohumeral joint. Surgical clips project over the right hemithorax. At least moderate bilateral coxarthrosis and symphysis pubis arthrosis. Finalized by Dave Zamora M.D. on 03/30/2021 2:22 PM. Dictated by Dave Zamora M.D. on 03/30/2021 2:20 PM. Performing Organization Address City/State/ZIP Code P nora Number [facility] RESULTS from Last 3 Months Insurance Type Payer Benefit Subscriber ID Effective Phone Address Plan / Dates Group Medicare [facility] MEDICARE [facility] [id number] 2020-P MEDICARE resent REPLACEMEN T HMO [id number] 2013-P FOR LIFE resent [phone] [facility] (Home[facility] [place], [place] [phone] Advance Directives Patient Geriatrics Physician Explanation Type Date Recorded Advance 09/13/2019 2:47 PM Directive/DPOA Orders OHDNR TPOPP 12/02/2018 12:00 AM Advance Directives 04/29/2013 6:40 PM and Living Will Advance Directives 03/25/2013 12:00 PM and Living Will Advance Directives 10/12/2012 12:06 PM and Living Will Advance Directives 04/01/2012 1:28 PM and Living Will Advance Directives 03/25/2012 4:01 PM and Living Will Advance Directives 10/08/2011 12:00 AM and Living Will Advance Directives 09/19/2011 12:00 AM and Living Will Advance Directives 01/01/2011 12:00 AM and Living Will Date Inactivated Comments Code Status Date Activated 10/25/2019 6:22 PM Full Code 10/23/2019 8:59 PM Provider has discussed Code Status No, more discussi on w/Patient or Family? needed 09/28/2019 11:53 AM Full Code 09/12/2019 2:13 PM Provider has discussed Code Status Yes w/Patient or Family? 12/30/2018 3:24 PM Full Code 12/27/2018 5:56 AM Provider has discussed Code Status Yes w/Patient or Family? 12/15/2018 6:25 PM Full Code 12/12/2018 9:47 PM Provider has discussed Code Status No, more discussi on w/Patient or Family? needed 12/02/2018 5:59 PM Full Code 11/30/2018 2:09 PM Provider has discussed Code Status No, discussion no t w/Patient or Family? necessary based on Dx
--- OUTSIDE RECORDS SUMMARY | 2021-06-27 12:28 | XMS REPORT | Encounter Summary ---
Author Author [facility] Organization [facility] Address Unknown Phone Unavailable Care Team Providers Care Work Order Detailer Name Role Phone Dyllan Carroll MD Unavailable Unavailable Usha Dietrich MD Unavailable Nahomi Crespo MARINE DIVER Unavailable Unavailable Alan Lyles SUPERVISOR AGRICULTURAL EDUCATION-DIRECTOR HR COMMUNICATIONS Unavailable Miquel Abdi DO [id number] Abbey Ramirez SUPERVISOR AGRICULTURAL EDUCATION-DIRECTOR HR COMMUNICATIONS Unavailable Tatyana Hough RN Unavailable Unavailable Sonya Low RN Unavailable Unavailable Heath Dillon MD Unavailable Treasure Duke LPN Unavailable Unavailable Sharyn Bradley MD 100 [phone] Sharyn Bradley MD PCP [phone] Charlene Dunn NP 21 Reason for Visit * Reason Comments Medication Refill Encounter Details Care Team Description Date Type Department Darek Messer MD [address] [address] 05/21/2021 Refill Eye Care: [address] [facility] [address] [place] [address] Social History Date Tobacco Use Types Packs/Day [...] End Date Prescription Sig Dispensed Refills 05/22/2021 acyclovir (ZOVIRAX) 400 TAKE 1 TABLET 180 tablet 4 mg tablet BY MOUTH EVERY 12 HOURS TO PREVENT RECURRENT HERPES SIMPLEX INFECTION documented in this encounter Plan of Treatment Not on filedocumented as of this encounter Goals Goal Patient Associated Recent Progress Patient-Stat Aut hor Goal Type Problems ed? Increase Fruits and Vegetables Diet No Risa Matthews RN Recover from illness Hospital Yes Rebeka Choudhury RN Resume normal activities Hospital Yes Rebeka Mei RN documented as of this encounter Visit Diagnoses Not on filedocumented in this encounter Discontinued Medications Start Date End Date Medication Sig Discontinue Reason 04/19/2020 05/22/2021 acyclovir (ZOVIRAX) 400 Take one mg tabletIndications: tablet by suppression of recurrent mouth every herpes simplex infection 12 hours. Indications: prevent recurrent herpes simplex infection documented as of this encounter Additional Health Concerns Assessment Noted Time PHQ-9 Depression Total Score: 15 04/03/2021 2:49 PM CDT A fall risk assessment has been completed for the pat ient 04/13/2021 1:35 PM CDT A Body Mass Index follow-up plan has been documented for the patient 10/16/2016 2:57 PM INNOVATION MANAGER PHQ-2 Depression Total Score: 5 04/03/2021 2:49 PM CDT documented as of this encounter
--- OUTSIDE RECORDS SUMMARY | 2021-06-27 12:28 | XMS REPORT | Encounter Summary ---
Author Author [facility] Organization [facility] Address Unknown Phone Unavailable Care Team Providers Care Inside Sales Executive Name Role Phone Dyllan Carroll MD Unavailable Unavailable Usha Dietrich MD Unavailable Nahomi Crespo ENGRAVER JEWELRY Unavailable Unavailable Alan Lyles PROBATE JUDGE-BRICK BURNER HEAD Unavailable Miquel Abdi DO [id number] Abbey Ramirez PROBATE JUDGE-BRICK BURNER HEAD Unavailable Tatyana Hough RN Unavailable Unavailable Sonya Low RN Unavailable Unavailable Heath Dillon MD Unavailable Treasure Duke ENGRAVER JEWELRY Unavailable Unavailable Sharyn Bradley MD 100 [phone] Sharyn Bradley MD PCP [phone] Charlene Dunn NP 21 Encounter Details Care Team Description Date [place] [address] [place] [address] Ami Schneider, PhD [address] [place] [address] 05/15/2021 Clinical Internal Medicine: Main Support [place] [address] [facility] [address] [place] [id number] Social History Date Tobacco Use Types Packs/Day [...] impairment: No documented as of this encounter Progress Notes * Ami Schneider, PhD - 05/15/2021 3:30 PM CDT * Courtney Trivedi MA - 05/15/2021 3:30 PM CDT Attempted to contact pt at 1520, pt did not answer LVM with return call back num sage to get checked in. Provided call back number to patient. Courtney Trivedi MA Attempted to contact pt again at 1525, pt line went straight to . Courtney Trivedi MA documented in this encounter Plan of Treatment [...] Diagnoses Not on filedocumented in this encounter Additional Health Concerns Assessment Noted Time PHQ-9 Depression Total Score: 15 04/03/2021 2:49 PM CDT A fall risk assessment has been completed for the pat ient 04/13/2021 1:35 PM CDT A Body Mass Index follow-up plan has been documented for the patient 10/16/2016 2:57 PM LEMON GROWER PHQ-2 Depression Total Score: 5 04/03/2021 2:49 PM CDT documented as of this encounter
--- OUTSIDE RECORDS SUMMARY | 2021-06-27 12:28 | XMS REPORT | Encounter Summary ---
Author Author [facility] Organization [facility] Address Unknown Phone Unavailable Care Team Providers Care Transit Mix Operator Name Role Phone Dyllan Carroll MD Unavailable Unavailable Usha Dietrich MD Unavailable Nahomi Crespo MILANESE KNITTING MACHINE OPERATOR Unavailable Unavailable Alan Lyles BOOKY-ROOM CLEANER Unavailable Miquel Abdi DO [id number] Abbey Ramirez BOOKY-ROOM CLEANER Unavailable Tatyana Hough RN Unavailable Unavailable Sonya Low RN Unavailable Unavailable Heath Dillon MD Unavailable Treasure Duke MILANESE KNITTING MACHINE OPERATOR Unavailable Unavailable Sharyn Bradley MD 100 [phone] Sharyn Bradley MD PCP [phone] Charlene Dunn NP 21 Reason for Visit * Reason Comments Medication Refill Encounter Details Care Team Description Date [place] [address] [place] [address] Generalized anxiety disorder 05/05/2021 Refill Internal Medicine: [facility], [address] [place] [address] Social History Date Tobacco Use Types Packs/Day [...] Date End Date Prescription Sig Dispensed Refills 05/07/2021 hydrOXYzine HCL (ATARAX) TAKE 1 TABLET 120 tablet 3 25 mg tabletIndications: BY MOUTH 3 Generalized anxiety TIMES DAILY disorder NEEDED documented in this encounter Miscellaneous Notes * Telephone Encounter - Courtney Trivedi MA - 05/07/2021 8:10 AM CDT Refill request from [facility] for hydroxyzine. Last filled 02/14/2021 (#120x1). Last office visit 01/17/2021, next office visit Future Appointments Date Time Provider Department Center 05/15/2021 3:30 PM Ami Schneider, PhD [facility] 06/15/2021 3:15 PM Angella Maciel MD [facility] Neurology 06/27/2021 2:00 PM Félix Clement MD [facility] 08/08/2021 11:00 AM Sharyn Bradley MD [facility] 08/17/2021 1:00 PM [id number] [facility] None 10/12/2021 3:20 PM Darek Messer [place] [facility] [place] 02/14/2022 9:45 AM SCREENING RAZ ROOM [facility] Radiology 02/14/2022 10:30 AM Abbey Ramirez, BOOKY-ROOM CLEANER CCC2 [facility] Exam . This medication is not under General Medicine protocol. Routing to for approval. Courtney Trivedi MA documented in this encounter Plan of Treatment Not on filedocumented as of this encounter Goals Goal Patient Associated Recent Progress Patient-Stat Aut hor Goal Type Problems ed? Increase Fruits and Vegetables Diet No Risa Matthews RN Recover from illness Hospital Yes Rebeka Choudhury RN Resume normal activities Hospital Yes Rebeka Mei RN documented as of this encounter Visit Diagnoses Diagnosis Generalized anxiety disorder documented in this encounter Discontinued Medications Start Date End Date Medication Sig Discontinue Reason 02/14/2021 05/07/2021 hydrOXYzine (ATARAX) 25 TAKE 1 mg tabletIndications: TABLET BY Generalized anxiety MOUTH 3 disorder TIMES DAILY NEEDED documented as of this encounter Additional Health Concerns Assessment Noted Time PHQ-9 Depression Total Score: 15 04/03/2021 2:49 PM CDT A fall risk assessment has been completed for the pat ient 04/13/2021 1:35 PM CDT A Body Mass Index follow-up plan has been documented for the patient 10/16/2016 2:57 PM NONDESTRUCTIVE TESTER PHQ-2 Depression Total Score: 5 04/03/2021 2:49 PM CDT documented as of this encounter
--- OUTSIDE RECORDS SUMMARY | 2021-06-27 12:28 | XMS REPORT | Encounter Summary ---
Author Author [facility] Organization [facility] Address Unknown Phone Unavailable Care Team Providers Care Silver Lap Machine Tender Name Role Phone Dyllan Carroll MD Unavailable Unavailable Usha Dietrich MD Unavailable Nahomi Crespo ASSEMBLER CATERPILLAR SPIDER Unavailable Unavailable Alan Lyles INDUSTRIAL RADIOGRAPHER-ABRASIVE GRINDER Unavailable Miquel Abdi DO [id number] Abbey Ramirez INDUSTRIAL RADIOGRAPHER-ABRASIVE GRINDER Unavailable Tatyana Hough RN Unavailable Unavailable Sonya Low RN Unavailable Unavailable Heath Dillon MD Unavailable Treasure Duke LPN Unavailable Unavailable Sharyn Bradley MD 100 [phone] Sharyn Bradley MD PCP [phone] Charlene Dunn NP 21 Encounter Details Care Team Description Date Type Department 06/15/2021 Travel Social History Date Tobacco Use Types Packs/Day [...] impairment: No documented as of this encounter Plan of Treatment Not on [...] Score: 15 04/03/2021 2:49 PM CDT A Body Mass Index follow-up plan has been documented for the patient 10/16/2016 2:57 PM DIGITAL ACCOUNT DIRECTOR PHQ-2 Depression Total Score: 2 06/15/2021 3:22 PM CDT documented as of this encounter
--- OUTSIDE RECORDS SUMMARY | 2021-06-27 12:28 | XMS REPORT | Encounter Summary ---
Author Author [facility] Organization [facility] Address Unknown Phone Unavailable Care Team Providers Care Supply Chain Tech Name Role Phone Dyllan Carroll MD Unavailable Unavailable Usha Dietrich MD Unavailable Nahomi Crespo SOLDERING MACHINE OPERATOR AUTOMATIC Unavailable Unavailable Alan Lyles FARMER DIVERSIFIED CROPS-DRAPERY HANGER Unavailable Miquel Abdi DO [id number] Abbey Ramirez FARMER DIVERSIFIED CROPS-DRAPERY HANGER Unavailable Tatyana Hough RN Unavailable Unavailable Sonya Low RN Unavailable Unavailable Heath Dillon MD Unavailable Treasure Duke LPN Unavailable Unavailable Sharyn Bradley MD 100 [phone] Sharyn Bradley MD PCP [phone] Charlene Dunn NP 21 Reason for Visit * Reason Onset Date Comments Medication Refill 05/16/2021 Encounter Details Care Team Description Date Type Department Kavon Darling MD [address] [place] [address] 05/16/2021 [facility]ill [facility]: [facility] [address] [facility] [place] [address] Social History Date Tobacco Use Types Packs/Day [...] Date End Date Prescription Sig Dispensed Refills 05/16/2021 06/15/[address] (CYMBALTA) Take one 90 capsule 3 60 mg capsule capsule by mouth daily. documented in this encounter Plan of Treatment [...] Date End Date Medication Sig Discontinue Reason 05/09/2020 05/16/2021 duloxetine (CYMBALTA) TAKE 1 Reorder 60 mg capsule CAPSULE DAILY documented as of this encounter Additional Health Concerns Assessment Noted Time PHQ-9 Depression Total Score: 15 04/03/2021 2:49 PM CDT A fall risk assessment has been completed for the pat ient 04/13/2021 1:35 PM CDT A Body Mass Index follow-up plan has been documented for the patient 10/16/2016 2:57 PM SUPERVISOR CELL EFFICIENCY PHQ-2 Depression Total Score: 5 04/03/2021 2:49 PM CDT documented as of this encounter
--- OUTSIDE RECORDS SUMMARY | 2021-06-27 12:28 | XMS REPORT | Encounter Summary ---
Author Author [facility] Organization [facility] Address Unknown Phone Unavailable Care Team Providers Care Director Acute Name Role Phone Dyllan Carroll MD Unavailable Unavailable Usha Dietrich MD Unavailable Nahomi Crespo MACHINE HAMPER MAKER Unavailable Unavailable Alan Lyles REIMBURSEMENT SPECIALIST-FAST FOOD SERVER Unavailable Miquel Abdi DO [id number] Abbey Ramirez REIMBURSEMENT SPECIALIST-FAST FOOD SERVER Unavailable Tatyana Hough RN Unavailable Unavailable Sonya Low RN Unavailable Unavailable Heath Dillon MD Unavailable Treasure Duke MACHINE HAMPER MAKER Unavailable Unavailable Sharyn Bradley MD 100 [phone] Sharyn Bradley MD PCP [phone] Charlene Dunn NP 21 Reason for Referral * Radiology Services (Routine) Referred By Contact Referred To Contact Status Reason Specialty Diagnoses / Procedures Micha Hatfield MD [address] [facility] [place] [address] New Request Radiology Diagnoses Thoracic radiculopathy P rocedures FLUORO GUIDANCE FOR INJ RAD Electronically signed by Micha Hatfield MD at Reason for Visit * Radiology Services (Routine) Referred By Contact Referred To Contact Status Reason Specialty Diagnoses / Procedures Micha Hatfield MD [address] [facility] [place] [address] New Request Radiology Diagnoses Thoracic radiculopathy P rocedures FLUORO GUIDANCE FOR INJ RAD Encounter Details Care Team Description Date Type Department Micha Hatfield MD [address] [facility] [place], [place] [id number] 05/02/2021 Hospital Imaging, Comprehens maddison Encounter Spine: Main [place], [facility] [address] [facility] [address] [place] [address] Social History Date Tobacco Use Types Packs/Day [...] impairment: No documented as of this encounter Medications at Time of Discharge Start Date End Date Medication Sig Dispensed Refills 12/02/2018 acetaminophen SR(+) Take two 30 tablet 0 (TYLENOL) 650 mg tablet tablets by mouth twice daily. HOLD while on Hydrocodone/A cetaminophen 10/15/2018 atorvastatin (LIPITOR) 40 Take 1 tablet 0 mg tablet by mouth at bedtime daily. calcium carbonate/vitamin Take 1 tablet 0 D-3 (OSCAL-500+D) 1250 by mouth mg/200 unit tablet daily. Calcium Carb 1250mg delivers 500mg elemental Ca 11/23/2020 difluprednate (DUREZOL) Apply one 5 mL 1 0.05 % ophthalmic drop drop to left eye as directed four times daily. 08/11/2019 Docusate Sodium 100 mg Take 1 tablet 120 tablet 0 tab twice daily for constipation. Take when using pain medications. famotidine (PEPCID) 20 mg Take 20 mg by 0 tablet mouth twice daily. iron,carbonyl-vitamin C Take 1 tablet 0 (VITRON-C) 65 mg iron- by mouth at 125 mg TbEC bedtime daily. (Vitron-C) 01/12/2015 loratadine (CLARITIN) 10 Take 1 Tab by 90 Tab 3 mg tablet mouth daily as needed. melatonin 5 mg chew Chew by 0 mouth. methotrexate 2.5 mg/mL Take 1.25 mg 0 oral solution by mouth. 11/21/2020 ofloxacin (FLOXIN) 0.3 % Apply one 5 mL 0 ophthalmic solution drop to left eye as directed four times daily. 04/13/2021 prednisolone acetate Apply one 10 mL 11 (PRED FORTE) 1 % drop to left ophthalmic suspension eye as directed twice daily. 04/19/2020 05/22/2021 acyclovir (ZOVIRAX) 400 Take one 180 tablet 4 mg tabletIndications: tablet by suppression of recurrent mouth every herpes simplex infection 12 hours. Indications: prevent recurrent herpes simplex infection 03/23/2020 06/15/2021 amitriptyline (ELAVIL) 50 Take one 90 tablet 3 mg tabletIndications: tablet by Adjustment disorder with mouth at depressed mood bedtime daily. 05/09/2020 05/16/[address] (CYMBALTA) TAKE 1 90 capsule 3 60 mg capsule CAPSULE DAILY 01/16/2021 06/15/2021 gabapentin (NEURONTIN) Take three 720 capsule 3 300 mg capsule capsules by mouth every morning AND one capsule daily after lunch AND four capsules at bedtime daily. 02/14/2021 05/07/2021 hydrOXYzine (ATARAX) 25 TAKE 1 TABLET 120 tablet 1 mg tabletIndications: BY MOUTH 3 Generalized anxiety TIMES DAILY disorder NEEDED 01/22/2021 05/22/2021 losartan (COZAAR) 25 mg Take one 90 tablet 1 tabletIndications: tablet by Essential hypertension mouth daily. 01/22/2021 05/22/2021 metoprolol XL (TOPROL XL) Take one 90 tablet 1 100 mg extended release tablet by tabletIndications: mouth daily. Essential hypertension documented as of this encounter Discharge Disposition Code Departure Means Destination Disposition Home Home or Self Care documented in this encounter Plan of Treatment Not on filedocumented as of this encounter Goals Goal Patient Associated Recent Progress Patient-Stat Aut hor Goal Type Problems ed? Increase Fruits and Vegetables Diet No Risa Matthews RN Recover from illness Hospital Yes Rebeka Choudhury RN Resume normal activities Hospital Yes Rebeka Mei RN documented as of this encounter Procedures Comments Procedure Name Priority Date/Time Associated Diag nosis FLUORO GUIDANCE FOR INJ Routine 05/02/2021 Thorac ic radiculopathy RAD 1:05 PM CDT documented in this encounter Results * FLUORO GUIDANCE FOR INJ RAD (05/02/2021 1:05 PM CDT) Specimen Narrative Performed At This order has been auto finalized and does not conta in a result. JULISSA PATEL Performing Organization Address City/State/ZIP Code P nora Number JULISSA AMANDA documented in this encounter Visit Diagnoses Diagnosis Thoracic radiculopathy Thoracic or lumbosacral neuritis or rad iculitis, unspecified documented in this encounter Additional Health Concerns Assessment Noted Time PHQ-9 Depression Total Score: 15 04/03/2021 2:49 PM CDT A fall risk assessment has been completed for the pat ient 04/13/2021 1:35 PM CDT A Body Mass Index follow-up plan has been documented for the patient 10/16/2016 2:57 PM SEISMOGRAPH OPERATOR HELPER PHQ-2 Depression Total Score: 5 04/03/2021 2:49 PM CDT documented as of this encounter
--- OUTSIDE RECORDS SUMMARY | 2021-06-27 12:28 | XMS REPORT | Encounter Summary ---
Author Author [facility] Organization [facility] Address Unknown Phone Unavailable Care Team Providers Care Girls Tennis Coach Name Role Phone Dyllan Carroll MD Unavailable Unavailable Usha Dietrich MD Unavailable Nahomi Crespo DIRECTOR ECONOMIC Unavailable Unavailable Alan Lyles WAFER POLISHING WORKER-THROUGH OPERATOR Unavailable Miquel Abdi DO [id number] Abbey Ramirez WAFER POLISHING WORKER-THROUGH OPERATOR Unavailable Tatyana Hough RN Unavailable Unavailable Sonya Low RN Unavailable Unavailable Heath Dillon MD Unavailable Treasure Duke LPN Unavailable Unavailable Sharyn Bradley MD 100 [phone] Sharyn Bradley MD PCP [phone] Charlene Dnun NP 21 Reason for Visit * Reason Onset Date Comments Other 05/25/2021 Therapy POT Encounter Details Care Team Description Date Type Department Félix Clement MD [address] [place] [address] Other (Therapy POT) 05/25/2021 Telephone Rheumatology: Main [place] [address] [facility] [address] [place] [address] Social History Date Tobacco Use [...] impairment: No documented as of this encounter Miscellaneous Notes * Telephone Encounter - Linda Duff RN - 05/25/2021 11:10 AM CDT Faxed signed 05/09/21 progress note/plan of care to [facility] Fax# , to be scanned to [employer]. documented in this encounter Plan of Treatment [...] documented for the patient 10/16/2016 2:57 PM OVERNIGHT ASSOCIATE PHQ-2 Depression Total Score: 5 04/03/2021 2:49 PM CDT documented as of this encounter
--- OUTSIDE RECORDS SUMMARY | 2021-06-27 12:28 | XMS REPORT | Encounter Summary ---
Author Author [facility] Organization [facility] Address Unknown Phone Unavailable Care Team Providers Care Global Position System Technician Name Role Phone Dyllan Carroll MD Unavailable Unavailable Usha Dietrich MD Unavailable Nahomi Crespo HOME CARE ASSISTANT Unavailable Unavailable Alan Lyles SENIOR SQL DATABASE DEVELOPER-OYSTER PREPARER Unavailable Miquel Abdi DO [id number] Abbey Ramirez SENIOR SQL DATABASE DEVELOPER-OYSTER PREPARER Unavailable Tatyana Hough RN Unavailable Unavailable Sonya Low RN Unavailable Unavailable Heath Dillon MD Unavailable Treasure Duke LPN Unavailable Unavailable Sharyn Bradley MD 100 [phone] Sharyn Bradley MD PCP [phone] Charlene Dunn NP 21 Reason for Visit * Reason Comments Follow Up Encounter Details Care Team Description Date Type Department Angella Maciel MD [address] [place] [address] Adjustment disorder with depressed mood 06/15/2021 Office Visit [facility] [address] [facility] [place] [address] Social History Date Tobacco Use [...] / COVID-19? documented as of this encounter Last Filed Vital Signs Reading Time Taken Comments Vital Sign 151/83 06/15/2021 3:24 PM CDT Blood Pressure 78 06/15/2021 3:24 PM CDT Pulse - - Temperature - - Respiratory Rate - - Oxygen Saturation - - Inhaled Oxygen Concentration 79.6 kg (175 lb 6.4 oz) 06/15/2021 3:24 PM CDT Weight 147.3 cm (4' 9.99") 06/15/2021 3:24 PM CDT Height 36.67 06/15/2021 3:24 PM CDT Body Mass Index documented in this encounter Functional Status Date of Assessment [...] Date End Date Prescription Sig Dispensed Refills 06/15/2021 gabapentin (NEURONTIN) Take three 720 capsule 3 300 mg capsule capsules by mouth every morning AND one capsule daily after lunch AND four capsules at bedtime daily. 06/15/2021 amitriptyline (ELAVIL) 50 Take one 90 tablet 3 mg tabletIndications: tablet by Adjustment disorder with mouth at depressed mood bedtime daily. documented in this encounter Progress Notes * Kavon Darling MD - 06/15/2021 3:15 PM CDT I have personally interviewed and examined Meenu Hastings and reviewed the histo ry, examination, impression, and plan of care as outlined by Dr.Mai Janell MD . I personally participated in patient counseling and coordination of care. I agree with the assessment and plan as documented by Dr. Angella Maciel MD. * Angella Maciel MD - 06/15/2021 3:15 PM CDT Date of Service: 06/15/2021 Subjective: Meenu Hastings is a 75 y.o. female. History of Present Illness Meenu Hastings is a 75 y.o. female with Sjogren's syndrome and rheumatoid arthri tis who presents for follow up of sensory neuropathy. Last seen by Dr. Juwan del real 06/2020. Over the past year, she has been doing well.Since last visit her neuropathic p ain has been stable and tolerable on current regimen of gabapentin and amitripty line. Cymbalta was stopped for mood and she has not noticed any worsening of the neuropathic pain. The numbness has not progressed. She has undergone 2 eye surgeries and she could see blurred through left eye but not well. Ptosis and vision unchanged. In addition to gabapentin and amitriptyline, she uses topical cream including vo ltaren gel and emu oil, and wintergreen isopropyl alcohol with 6-8 aspirin added . Occasionally she uses ultram. She has stable gait imbalance due to multiple MSK issues including right knee an d back (s/p multiple surgeries). Review of Systems Constitutional: Positive for fatigue. HENT: Positive for congestion, hearing loss, rhinorrhea and sneezing. Eyes: Positive for photophobia, discharge and redness. Respiratory: Positive for apnea and wheezing. Endocrine: Positive for polydipsia. Musculoskeletal: Positive for arthralgias, back pain, joint swelling, neck pain and neck stiffness. Neurological: Positive for headaches. Psychiatric/Behavioral: Positive for decreased concentration and sleep disturban ce. All other systems reviewed and are negative. Objective: acetaminophen SR(+) (TYLENOL) 650 mg tablet Take two tablets by mouth twice daily. HOLD while on Hydrocodone/Acetaminophen (Patient taking differently: Take 1,300 mg by mouth twice daily.) acyclovir (ZOVIRAX) 400 mg tablet TAKE 1 TABLET BY MOUTH EVERY 12 HOURS TO PREVENT RECURRENT HERPES SIMPLEX INFECTION amitriptyline (ELAVIL) 50 mg tablet Take one tablet by mouth at bedtime lawrence y. atorvastatin (LIPITOR) 40 mg tablet Take 1 tablet by mouth at bedtime daily. calcium carbonate/vitamin D-3 (OSCAL-500+D) 1250 mg/200 unit tablet Take 1 t ablet by mouth daily. Calcium Carb 1250mg delivers 500mg elemental Ca difluprednate (DUREZOL) 0.05 % ophthalmic drop Apply one drop to left eye as directed four times daily. Docusate Sodium 100 mg tab Take 1 tablet twice daily for constipation. Take when using pain medications. famotidine (PEPCID) 20 mg tablet Take 20 mg by mouth twice daily. gabapentin (NEURONTIN) 300 mg capsule Take three capsules by mouth every mor gill AND one capsule daily after lunch AND four capsules at bedtime daily. hydrOXYzine HCL (ATARAX) 25 mg tablet TAKE 1 TABLET BY MOUTH 3 TIMES DAILY NEEDED iron,carbonyl-vitamin C (VITRON-C) 65 mg iron- 125 mg TbEC Take 1 tablet by mouth at bedtime daily. (Vitron-C) loratadine (CLARITIN) 10 mg tablet Take 1 Tab by mouth daily as needed. (Pat ient taking differently: Take 10 mg by mouth daily.) losartan (COZAAR) 25 mg tablet TAKE 1 TABLET BY MOUTH DAILY melatonin 5 mg chew Chew by mouth. methotrexate 2.5 mg/mL oral solution Take 1.25 mg by mouth. metoprolol XL (TOPROL XL) 100 mg extended release tablet TAKE 1 TABLET BY MO UTH DAILY ofloxacin (FLOXIN) 0.3 % ophthalmic solution Apply one drop to left eye as d irected four times daily. prednisolone acetate (PRED FORTE) 1 % ophthalmic suspension Apply one drop t o left eye as directed twice daily. Vitals: 06/15/21 1524 BP: (!) 151/83 BP Source: Arm, Right Upper Patient Position: Sitting Pulse: 78 Weight: 79.6 kg (175 lb 6.4 oz) Height: 147.3 cm (57.99") PainSc: Six Body mass index is 36.67 kg/m. Physical Exam General physical exam: Physical Exam HEENT: normocephalic, eyes open with no discharge, nares patent, oropharynx is c lear with no lesions, palate intact, no bruits Chest: normal configuration, non labored breathing, chest rise equal b/l Skin: no rashes or lesions Psych: normal Extremities: Cool to touch, normal pulses palpated bilaterally Neuro: Mental status: Oriented to person/place/time/situation Memory: Recent and remote memory intact Attention: Good span, follows conversation Fund of knowledge: Appropriate Level of consciousness: Alert Speech: Fluency: Normal Comprehension: Normal Articulation: Normal CN II-XII: Fundoscopic exam was attempted but unable to appreciate fundi. Visual field full. 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 EOMI, facial sensation decreased on the left face. Symmetrica l facial movement. Hearing grossly intact to conversation. Strong cough, elevate s palate b/l, uvula midline. Strong shoulder shrug. Tongue midline. Motor: Normal tone and bulk. No abnormal movement, fasciculation or pronator dri ft. NF NE SA EF EE WE WF FF FE FA TA HF [place] HE KF KE DF PF In E v TF TE R 5GA 5 5 5 5 5 5 5 5 5 5 5 5 L 5GA 5 5 5 5 5 5 5 5 5 5 5 5 Limited shoulder and knee exam d/t joint pain. Sensory: Light touch:nl Pin prick: decreased from fingertips up to below elbow, more sensit maddison on the radial surface, and 3rd and 4th finger numb than other fingertips, bi laterally. BLE medial patchy area of decrease. Vibration (tuning fork 128 Hz): 7 sec at GT bilaterally Proprioception: intact Reflexes: No clonus, haja, cross adductor. Babinski absent. Right Left Triceps Biceps 2 2 Brachioradialis 1 1 Patella 1 1 Ankle 2 2 Cerebellar Funciton/fine movement: normal finger to nose, heel to moser Gait: hunched over from multiple back surgeries, symmetric arm swing. No ataxia, Romberg - Assessment and Plan: Meenu Varela a 74 y.o.L handed femalewho presents to Neurology clini c for follow up regardingburning painin handsand feet. Neuro examrevealsdistal pinprick loss in LEs, patchy pinprick loss on left hand, intact proprioception Diagnostic Imaging/Labs: -Prior SPEP, TSH, A1c have been normal. [id number] value 677 -EMG show mild sensory length dependent neuropathy Impression: 1.Length dependent sensory neuropathy- She has symptoms and exam findings co nsistent with small fiber neuropathy, but some large fiber sensory findings on e mg. 2. Hx of R hemibody numbness and paraesthesias- This was acute onset in 2016. MRI does not show stroke. 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 Symp toms have improved greatly over timeand stable 3. B12 defeciency- Resolved PLAN: > continuegabapentin to 900mg qam and 1200mg qhs > Continue amitriptyline 50 mg qhs >[place] isopropyl alcohol with 6-8 aspirin added/voltaren gel/emu oil, rub on feet at bedtime for symptomatic relief RTC as needed Patient seen and discussed with Dr. Lisset Maciel M.D., PGY-4 Neurology Resident Pager [phone] documented in this encounter Plan of Treatment Not on filedocumented as of this encounter Goals Goal Patient Associated Recent Progress Patient-Stat Aut hor Goal Type Problems ed? Increase Fruits and Vegetables Diet No [place], Risa Hodges RN Recover from illness Hospital Yes Rebeka Choudhury RN Resume normal activities Hospital Yes Rebeka Mei RN documented as of this encounter Visit Diagnoses Diagnosis Adjustment disorder with depressed mood documented in this encounter Discontinued Medications Start Date End Date Medication Sig Discontinue Reason 05/16/2021 06/15/2021 duloxetine (CYMBALTA) Take one 60 mg capsule capsule by mouth daily. 03/23/2020 06/15/2021 amitriptyline (ELAVIL) 50 Take one Reorder mg tabletIndications: tablet by Adjustment disorder with mouth at depressed mood bedtime daily. 01/16/2021 06/15/2021 gabapentin (NEURONTIN) Take three Reorder 300 mg capsule capsules by mouth every morning AND one capsule daily after lunch AND four capsules at bedtime daily. documented as of this encounter Additional Health Concerns Assessment Noted Time PHQ-9 Depression Total Score: 15 04/03/2021 2:49 PM CDT A Body Mass Index follow-up plan has been documented for the patient 10/16/2016 2:57 PM RADIOLOGY ORDERLY PHQ-2 Depression Total Score: 2 06/15/2021 3:22 PM CDT documented as of this encounter
--- OUTSIDE RECORDS SUMMARY | 2021-06-27 12:29 | XMS REPORT | Encounter Summary ---
Author Author [facility] Organization [facility] Address Unknown Phone Unavailable Care Team Providers Care Steelscope Operator Name Role Phone Dyllan Carroll MD Unavailable Unavailable Usha Dietrich MD Unavailable Nahomi Crespo TANK CAR INSPECTOR Unavailable Unavailable Alan Lyles INSPECTOR OF WEIGHTS AND MEASURES-WRAP KNITTING MACHINE OPERATOR Unavailable Miquel Abdi DO [id number] Abbey Ramirez INSPECTOR OF WEIGHTS AND MEASURES-WRAP KNITTING MACHINE OPERATOR Unavailable Tatyana Hough RN Unavailable Unavailable Sonya Low RN Unavailable Unavailable Heath Dillon MD Unavailable Treasure Duke LPN Unavailable Unavailable Sharyn Bradley MD 100 [phone] Sharyn Bradley MD PCP [phone] Charlene Dunn NP 21 Reason for Visit * Reason Onset Date Comments Pre-Visit Planning 05/01/2021 Encounter Details Care Team Description Date Type Department Micha Hatfield MD [address] [facility] [place] [address] Pre-Visit Planning 05/01/2021 Telephone [facility] Spine Center: Main [place] [address] [facility] [address] [place] [address] Social History Date Tobacco Use [...] PM CDT Date Recorded COVID-19 Exposure Response 04/13/2021 1:05 PM CDT In the last month, have [...] documented for the patient 10/16/2016 2:57 PM CONTACT ACID PLANT OPERATOR HELPER PHQ-2 Depression Total Score: 5 04/03/2021 2:49 PM CDT documented as of this encounter
--- OUTSIDE RECORDS SUMMARY | 2021-06-27 12:29 | XMS REPORT | Encounter Summary ---
Author Author [facility] Organization [facility] Address Unknown Phone Unavailable Care Team Providers Care Railroad Signal Operator Name Role Phone Dyllan Carroll MD Unavailable Unavailable Usha Dietrich MD Unavailable Nahomi Crespo HEADER DOCK Unavailable Unavailable Alan Lyles BUSINESS INITIATIVES MANAGER-RESTAURANT COOK Unavailable Miquel Abdi DO [id number] Abbey Ramirez BUSINESS INITIATIVES MANAGER-RESTAURANT COOK Unavailable Tatyana Hough RN Unavailable Unavailable Sonya Low RN Unavailable Unavailable Heath Dillon MD Unavailable Treasure Duke LPN Unavailable Unavailable Sharyn Bradley MD 100 [phone] Sharyn Bradley MD PCP [phone] Charlene Dunn NP 21 Reason for Visit * Reason Comments Pain * Pain Authorization (Routine) Referred By Contact Referred To Contact Status Reason Specialty Diagnoses / Procedures Heath Dillon MD [address] [facility] [place] [address] [facility] Pain Proc [address] [facility], [address] [place] [address] Authorized Anesthesia Pain Diagnoses Cervical stenosis of spine P rocedures [facility] SPINE INJECT SNRB/TFESI CERVICAL/THORACIC Encounter Details Care Team Description Date Type Department Micha Hatfield MD [address] [facility] [place] [address] Cervical radiculopathy (Primary Dx); Cervical stenosis of spine 05/02/2021 Procedure visit [facility]: [facility] [place] [address] [facility] [address], [address] [place] [address] Social History Date Tobacco Use [...] Signs Reading Time Taken Comments Vital Sign 154/84 05/02/2021 1:21 PM CDT Blood Pressure - - Pulse 36.6 C (97.8 F) 05/02/2021 12:52 PM CDT Temperature - - Respiratory Rate 98% 05/02/2021 1:21 PM CDT Oxygen Saturation - - Inhaled Oxygen Concentration - - Weight - - Height - - Body Mass Index documented in this encounter [...] impairment: No documented as of this encounter Patient Instructions * Patient Instructions* Shwetha Chao, ESTUARDO - 05/02/2021 12:15 PM CDT Procedure Completed Today: Cervical Transforaminal Steroid Injection Important information following your procedure today: You may drive today 1. Pain relief may not be immediate. It is possible you may even experience an i ncrease in pain during the first 24-48 hours followed by a gradual decrease of y our pain. 2. Though the procedure is generally safe and complications are rare, we do ask that you be aware of any of the following: Any swelling, persistent redness, new bleeding, or drainage from the site of the injection. You should not experience a severe headache. You should not run a fever over 101 F. New onset of sharp, severe back & or neck pain. New onset of upper or lower extremity numbness or weakness. New difficulty controlling bowel or bladder function after the injection. New shortness of breath. If any of these occur, please call to report this occurrence to a nurse at . If you are calling after 4:00 p.m., on weekends or holidays please call [phone] and ask to have the resident physician energy conservation specialist for the physician p danielle or go to your local emergency room. 3. You may experience soreness at the injection site. Ice can be applied at 20 m inute intervals. Avoid application of direct heat, hot showers or hot tubs today . 4. Avoid strenuous activity today. You may resume your regular activities and ex ercise tomorrow. 5. Patients with diabetes may see an elevation in blood sugars for 7-10 days aft er the injection. It is important to pay close attention to your diet, check you r blood sugars daily and report extreme elevations to the physician that treats your diabetes. 6. Patients taking a daily blood thinner can resume their regular dose this even ing. 7. It is important that you take all medications ordered by your pain physician. Taking medication as ordered is an important part of your pain care plan. If you cannot continue the medication plan, please notify the physician. Possible side effects to steroids that may occur: Flushing or redness of the face Irritability Fluid retention Change in womens menses The following medications were used: Lidocaine , Decadron and Contrast Dye documented in this encounter Progress Notes * Shwetha Chao RN - 05/02/2021 12:15 PM CDT Pain Procedure Plan Of Care Risk of injury related to procedure Patient identification, allergies verified, fall precautions implemented Risk of injury and impaired skin integrity Positioning devices applied as appropriate for procedure, patient transported [facility] staff assistance Management of Pain Pain assessment completed on arrival, PAR scoring following procedure and at dis charge, sedation administered as ordered, patient positioned for comfort Risk of anxiety related to procedure and disease process Patient education on procedure and expectations, provide coping support to patie nt, provide relaxation techniques Outcomes: The patient is free of injury during and following their procedure. Skin is intact and free of bruising. The patients pain is managed during their stay. Alleviation of patient anxiety exhibited. * Micha Hatfield MD - 05/02/2021 12:15 PM CDT SPINE CENTER INTERVENTIONAL PAIN PROCEDURE HISTORY AND PHYSICAL No chief complaint on file. Pain HISTORY OF PRESENT ILLNESS: Neck pain and radicular pain. 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 [employer]) [facility] Hereditary Cancer Test: Negative, no mutation or VUS GERD (gastroesophageal reflux disease) History of right breast cancer 1989 DCIS right breast HTN (hypertension) Hx of methotrexate therapy Hyperlipidemia Limb alert care status do not use right arm Osteoarthritis Osteoporosis Personal history of radiation therapy 07/29/1990 radium implants ([place]) Personal history of radiation therapy 1990 45 Gy External beam XRT ([facility] in [place], [place]) RA (rheumatoid arthritis) ([facility]) Radiation therapy 1989 right brachytherapy and whole breast Scoliosis Sjogren's disease ([facility]) Spinal stenosis Surgical History: Procedure Laterality Date HX CARRILLO AND BSO Bilateral 02/1974 HX BREAST LUMPECTOMY Right 07/29/1990 w radium implants ([place]) ABSCESS DRAINAGE Right 03/26/1991 right breast abcess ([place])03/26/91 I&D right breast abcess ([place]) BREAST SURGERY Right 04/12/1991 revision right breast abcess cavity ([place]) HX BACK SURGERY 5-95 low back KNEE REPLACEMENT Right 09/22/1996 HX FOOT SURGERY Left 2000 KNEE REPLACEMENT Left 2008 BREAST RECONSTRUCTION Right 10/03/10 Tram flap-[place] HX MASTECTOMY Right 10/03/2010 CA TATTOOING INCL MICROPIGMENTATION 6.1-20.0 CM 11/14/2011 SPINE SURGERY 11/2012 SPINE SURGERY 2014 BONY PELVIS SURGERY Left 06/2016 CA INJECTION SINGLE TENDON ORIGIN/INSERTION 04/10/2017 REVISION ARTHROPLASTY TOTAL KNEE RIGHT Right 11/30/2018 Performed by Dyllan Carroll MD at [facility] OR MANIPULATION KNEE JOINT UNDER GENERAL ANESTHESIA Right 12/28/2018 Performed by Mo Pope MD at [facility] OR GLAUCOMA SURGERY 2020 KERATOPLASTY - PENETRATING - PSEUDOPHAKIA Left 09/21/2019 Performed by Darek Messer MD at [facility] OR INTRAVITREAL INJECTION PHARMACOLOGIC AGENT Left 09/21/2019 Performed by Darek Messer MD at [facility] OR CONSTRUCTION INTERMARGINAL ADHESION/ MEDIAN TARSORRHAPHY/ CANTHORRHAPHY Left 09/21/2019 Performed by Darek Messer MD at [facility] OR PLACEMENT AMNIOTIC MEMBRANE ON OCULAR SURFACE Left 09/21/2019 Performed by Darek Messer MD at [facility] OR PARS PLANA MECHANICAL VITRECTOMY WITH LATERAL TARSORRHAPHY Left 10/16/2019 Performed by Karuna Jay MD at [facility] OR INCISIONAL SEVERING ADHESIONS OF INTERIOR SEGMENT EYE - GONIOSYNECHIAE Left 10/24/2019 Performed by Darek Messer MD at [facility] OR CONSTRUCTION INTERMARGINAL ADHESION/ MEDIAN TARSORRHAPHY/ CANTHORRHAPHY Left 10/24/2019 Performed by Darek Messer MD at [facility] OR ANTERIOR PARTIAL REMOVAL VITREOUS - 23 GAUGE Left 10/24/2019 Performed by Darek Messer MD at [facility] OR LASER DISCISSION SECONDARY MEMBRANOUS CATARACT Left 07/24/2020 Performed by Darek Messer MD at [facility] OR PARS PLANA MECHANICAL VITRECTOMY Left 11/23/2020 Performed by Karuna Jay MD at [facility] OR INCISIONAL SEVERING ADHESIONS OF INTERIOR SEGMENT EYE - POSTERIOR SYNECHIAE Left 11/23/2020 Performed by Karuna Jay MD at [facility] OR CATARACT REMOVAL HX BREAST BIOPSY Right 05-26-90, 06-01-90 HX TONSILLECTOMY Bilateral family history includes Arthritis in her mother; Cancer-Breast in her maternal g randmother and another family member; Cancer-Colon in her paternal grandmother; Cancer-Hematologic in her son; Cancer-Thyroid (age of onset: 82) in her mother; Cancer-Uterine in her maternal grandmother and paternal grandmother; Cataract in her father and mother; Depression in her father and mother; Diabetes in her pat ernal grandfather; Diabetes Type II in her father; Heart problem in her father a nd mother; Other in her brother; Stroke in her father; Tumor in her daughter. Social History Socioeconomic History Marital status: Spouse name: Gómez Number of children: 3 Years of education: Not on file Highest education level: Not on file Occupational History Not on file Tobacco Use Smoking status: Never Smoker Smokeless tobacco: Never Used Vaping Use Vaping Use: Never used Substance and Sexual Activity Alcohol use: Never Alcohol/week: 0.0 standard drinks Drug use: Never Sexual activity: Yes Partners: Male control/protection: None Other Topics Concern Not on file Social History Narrative Not on file Allergies Allergen Reactions Adhesive Tape (Rosins) BLISTERS Hydrocodone-Acetaminophen HALLUCINATIONS Sulfa (Sulfonamide Antibiotics) NAUSEA AND VOMITING There were no vitals filed for this visit. PHYSICAL EXAM: General: The patient is a well-developed, 75 y.o. female in no acute distress. HEENT: Head is normocephalic and atraumatic. Cardiac: Based on palpation, pulse appears to be regular rate and rhythm. Pulmonary: The patient has unlabored respirations and bilateral symmetric chest excursion. Abdomen: Soft, nontender, and nondistended. Extremities: No clubbing, cyanosis, or edema. Neurologic: The patient is alert and oriented times 3. Musculoskeletal: C-Spine There is moderate low cervical paraspinal tenderness. IMPRESSION: 1. Cervical radiculopathy 2. Cervical stenosis of spine PLAN: Right C4-5 and C5-6 TFESI documented in this encounter Procedure Notes * Micha Hatfield MD - 05/02/2021 12:15 PM CDT Associated Order(s): SNR/TF CRV/THRC Attending Surgeon: Micha Hatfield MD Anesthesia: Local Pre-Procedure Diagnosis: 1. Cervical radiculopathy 2. Cervical stenosis of spine Post-Procedure Diagnosis: 1. Cervical radiculopathy 2. Cervical stenosis of spine SNR/TF CRV/THRC Procedure: transforaminal epidural Laterality: right on 05/02/2021 12:15 PM Location: cervical - C4-5 and C5-6 Consent: Consent obtained: written Consent given by: patient Risks discussed: allergic reaction, bleeding, bruising, infection, nerve damage, no change or worsening in pain, reaction to medication, seizure, swelling and w eakness Alternatives discussed: alternative treatment, delayed treatment and no treatmen t Discussed with patient the purpose of the treatment/procedure, other ways of aarti ating my condition, including no treatment/ procedure and the risks and benefits of the alternatives. Patient has decided to proceed with treatment/procedure. [place] Protocol: Relevant documents: relevant documents present and verified Site marked: the operative site was marked Patient identity confirmed: Patient identify confirmed verbally with patient. Time out: Immediately prior to procedure a "time out" was called to verify the c orrect patient, procedure, equipment, ground support equipment fitter and site/side marked as requ ired Procedures Details: Indications: pain Prep: chlorhexidine Patient position: prone Estimated Blood Loss: minimal Specimens: none Number of Joints: 2 Guidance: fluoroscopy Contrast: Procedure confirmed with contrast under live fluoroscopy. Needle and Epidural Catheter: quincke Needle size: 25 G Injection procedure: Incremental injection and Negative aspiration for blood Patient tolerance: Patient tolerated the procedure well with no immediate compli cations. Pressure was applied, and hemostasis was accomplished. Outcome: Pain relieved Comments: Following negative aspiration and appropriate contrast spread, 1.25mL of lidocai ne 1% with dexamethasone 7mg was injected at each level. Estimated blood loss: none or minimal Specimens: none Patient tolerated the procedure well with no immediate complications. Pressure w as applied, and hemostasis was accomplished. documented in this encounter Plan of Treatment [...] Procedure Name Priority Date/Time Associated Diag nosis CA NJX AA&/STRD TFRML EPI Routine 05/02/2021 Cerv ical radiculopathy CERVICAL/THORACIC EA ADDL 12:[address] enosis of spine CA NJX AA&/STRD TFRML EPI Routine 05/02/2021 Cerv ical radiculopathy CERVICAL/THORACIC 1 LEVEL 12:[address] enosis of spine documented in this encounter Results * SNR/TF CRV/THRC (05/02/2021 12:15 PM CDT) [...] the risks and benefits of the alternatives. Patiduc nt has decided to proceed with treatment/procedure. [place] Protocol: Relevant documents: relevant documents present and verified Site marked: the operative site was april quevedo Patient identity confirmed: Patient alondra ntify confirmed verbally with patient. Time out: Immediately prior to procedur e a "time out" was called to verify the correct patient, procedure, equipme nt, ground support equipment fitter and site/side marked as required Procedures Details: [...] Code P nora Number OTHER OUTSIDE LAB documented in this encounter Visit Diagnoses Diagnosis Cervical radiculopathy - Primary Brachial neuritis or radiculitis nos Cervical stenosis of spine Spinal stenosis in cervical region documented in this encounter Administered Medications Action Date Dose Rate Site Medication Order MAR Action 05/02/2021 1:00 PM CDT 15 mg dexamethasone PF (DECADRON) injection 15 Given mg 15 mg, SEE ADMIN INSTRUCTIONS, ONCE, 1 dose, On Fri05/02/21 at 1330, Preservative Free Route: Epidural 05/02/2021 1:00 PM CDT 2.5 mL iopamidol IT 200 (ISOVUE-M 200) Given injection 2.5 mL 2.5 mL, Epidural, ONCE, 1 dose, On Fri05/02/21 at 1245, NOTE: This is a HIGH ALERT Medication. documented in this encounter Orders First Ordered Date Procedures Count Last Ordered Date [facility] SPINE INJECT SNRB/TFESI 1 021 CERVICAL/THORACIC documented in this encounter Additional Health Concerns Assessment Noted Time PHQ-9 Depression Total Score: 15 04/03/2021 2:49 PM CDT A fall risk assessment has been completed for the pat ient 04/13/2021 1:35 PM CDT A Body Mass Index follow-up plan has been documented for the patient 10/16/2016 2:57 PM RIFFLER TENDER PHQ-2 Depression Total Score: 5 04/03/2021 2:49 PM CDT documented as of this encounter
--- OUTSIDE RECORDS SUMMARY | 2021-06-27 12:29 | XMS REPORT | Encounter Summary ---
Author Author [facility] Organization [facility] Address Unknown Phone Unavailable Care Team Providers Care Slat Pickler Name Role Phone Dyllan Carroll MD Unavailable Unavailable Usha Dietrich MD Unavailable Nahomi Crespo COUNTER CASER Unavailable Unavailable Alan Lyles SUPERINTENDENT OIL WELL SERVICES-FREELANCE DISPLAYER Unavailable Miquel Abdi DO [id number] Abbey Ramirez SUPERINTENDENT OIL WELL SERVICES-FREELANCE DISPLAYER Unavailable Tatyana Hough RN Unavailable Unavailable Sonya Low RN Unavailable Unavailable Heath Dillon MD Unavailable Treasure Duke LPN Unavailable Unavailable Sharyn Bradley MD 100 [phone] Sharyn Bradley MD PCP [phone] Charlene Dunn NP 21 Encounter Details Care Team Description Date Type Department 05/02/2021 Travel Social History Date Tobacco Use Types [...] documented for the patient 10/16/2016 2:[address] PHOTOGRAPHER PHQ-2 Depression Total Score: 5 04/03/2021 2:49 PM CDT documented as of this encounter
--- OUTSIDE RECORDS SUMMARY | 2021-06-27 12:29 | XMS REPORT | Encounter Summary ---
Author Author [facility] Organization [facility] Address Unknown Phone Unavailable Care Team Providers Care Signing Teacher Name Role Phone Dyllan Carroll MD Unavailable Unavailable Usha Dietrich MD Unavailable Nahomi Crespo ELECTRICAL TROUBLESHOOTER Unavailable Unavailable Alan Lyles RIGGING UP MAN-CATALYST OPERATOR CHIEF Unavailable Miquel Abdi DO [id number] Abbey Ramirez RIGGING UP MAN-CATALYST OPERATOR CHIEF Unavailable Tatyana Hough RN Unavailable Unavailable Sonya Low RN Unavailable Unavailable Heath Dillon MD Unavailable Treasure Duke ELECTRICAL TROUBLESHOOTER Unavailable Unavailable Sharyn Bradley MD 100 [phone] Sharyn Bradley MD PCP [phone] Charlene Dunn NP 21 Reason for Referral * Radiology Services (Routine) Referred By Contact Referred To Contact Status Reason Specialty Diagnoses / Procedures Micha Hatfield MD [address] [place] [address] New Request Radiology Diagnoses Thoracic radiculopathy P rocedures FLUORO GUIDANCE FOR INJ RAD Electronically signed by Micha Hatfield MD at Encounter Details Care Team Description Date Type Department Micha Hatfield MD [address] [place] [address] [phone] Thoracic radiculopathy (Primary Dx) 05/01/2021 Orders Only Comprehensive Sp[facility] Center: [facility] [address] [facility] [address], [address] [place] [id number] Social History Date Tobacco Use Types Packs/Day [...] Mei RN documented as of this encounter Results * FLUORO GUIDANCE FOR INJ RAD (05/02/2021 1:05 PM CDT) Specimen Narrative Performed At This order has been auto finalized and does not conta in a result. [facility] Performing Organization Address City/State/ZIP Code P nora Number [facility] documented in this encounter Visit Diagnoses Diagnosis Thoracic radiculopathy - Primary Thoracic or lumbosacral neuritis or rad iculitis, unspecified documented in this encounter Additional Health Concerns Assessment Noted Time PHQ-9 Depression Total Score: 15 04/03/2021 2:49 PM CDT A fall risk assessment has been completed for the pat ient 04/13/2021 1:35 PM CDT A Body Mass Index follow-up plan has been documented for the patient 10/16/2016 2:57 PM ARTS AND SCIENCES DEAN PHQ-2 Depression Total Score: 5 04/03/2021 2:49 PM CDT documented as of this encounter
--- NOTE | 2021-06-27 12:44 | ED Lower Extremity ---
General Chief Complaint: Lower Extremity Stated Complaint: RT HIP INJ Nursing Triage Note: Patient reports she fell one week ago and landed on her right side. She reports the pain has become progressively worse. Source: patient, family, EMS Exam Limitations: no limitations History of Present Illness Date Seen by Provider: Jun 27, 2021 Time Seen by Provider: 12:28 Initial Comments 75-year-old female with past medical history of rheumatoid arthritis previously on methotrexate, hypertension, hyperlipidemia, glaucoma, osteoporosis coming in via EMS from home due to right hip pain. She had a mechanical fall about 1 week ago today landing on her right side. She did not hit her head, did not pass out, and remembers all of the events. Did not have any chest pain or palpitations prior to the event. Slowly over the next coming days she had more more right hip pain. Now it is very severe, worse with movement, better with rest, sharp. She has never really had pain like this in her hip before. She has a history of chronic knee pain which she has had bilateral knee replacements. She has not been on chronic steroids for her rheumatoid. Does not take any blood thinners. Takes ibuprofen and Tylenol normally for pain which have not really been helping that much. Of note, the patient normally ambulates with a walker, and has been continuing to ambulate, and even ambulated with EMS today. Allergies and Home Medications Allergies Coded Allergies: Sulfa (Sulfonamide Antibiotics) (Verified Allergy, Unknown, 06/27/21) adhesive tape (Verified Allergy, Unknown, BLISTERS, 06/27/21) hydrocodone (Verified Allergy, Unknown, 06/27/21) Patient Home Medication List Home Medication List Reviewed: Yes Review of Systems Constitutional: no symptoms reported EENTM: no symptoms reported Respiratory: no symptoms reported Gastrointestinal: no symptoms reported Genitourinary: no symptoms reported Musculoskeletal: No back pain; joint pain Skin: no symptoms reported Psychiatric/Neurological: No Symptoms Reported All Other Systems Reviewed Negative Unless Noted: Yes Past Ipyeqxk-Ruipku-Qxslrn Hx Patient Social History Tobacco Use?: No Seasonal Allergies Seasonal Allergies: No Past Medical History Surgeries: Yes (Bilateral knee replacements) Hysterectomy, Orthopedic Respiratory: No Cardiac: Yes High Cholesterol, Hypertension 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 oz. kg; 32.00 BMI Method:Actual General Appearance: WD/WN, no apparent distress HEENT: PERRL/EOMI, normal ENT inspection, pharynx normal Neck: non-tender, full range of motion, supple, normal inspection Cardiovascular: regular rate, rhythm, no edema, no murmur Respiratory: lungs clear, normal breath sounds, no respiratory distress, no accessory muscle use Gastrointestinal: normal bowel sounds, non tender, soft; No distended, No guarding Back: normal inspection, no CVA tenderness, no vertebral tenderness Hips: left hip non-tender; bilateral hip normal inspection; left hip normal range of motion, left hip no evidence of injury; right hip bone tenderness, right hip limited range of motion, right hip soft tissue tenderness Legs: bilateral leg non-tender, bilateral leg normal inspection, bilateral leg normal range of motion, bilateral leg no evidence of injury Knees: bilateral knee non-tender, bilateral knee normal inspection, bilateral knee normal range of motion, bilateral knee no evidence of injury Ankles: bilateral ankle non-tender, bilateral ankle normal inspection, bilateral ankle normal range of motion, bilateral ankle no evidence of injury Feet: bilateral foot non-tender, bilateral foot normal inspection, bilateral foot normal range of motion, bilateral foot no evidence of injury Neurologic/Tendon: normal sensation, normal motor functions Neurologic/Psychiatric: no motor/sensory deficits, alert, normal mood/affect Skin: normal color, warm/dry Progress/Results/Core Measures Results/Orders My Orders Orders - RUEL CRAFT MD Pelvis With Right Hip 2-3 View (06/27/21 12:37) Vital Signs/I&O 06/27/21 12:30 Temp 35.9 Pulse 80 Resp 16 B/P (MAP) 165/73 (103) Pulse Ox 98 O2 Delivery Room Air Blood Pressure Mean: 103 Progress Progress Note : Progress Note 75-year-old female with above history coming in due to right hip pain 1 week after a fall. ABCs were intact and vitals were stable on presentation. Physical exam significant for pain with logroll or any range of motion of the right hip and some tenderness with palpation over the anterior right hip. Normal distal pulses and sensation. Normal motor exam distal to the injury. No midline spinal tenderness. Did not hit her head or pass out, and does not take blood thinners. We will get an x-ray of her pelvis and right hip to assess for fracture. X-ray my interpretation without any fracture but does have severe arthritic changes in her bilateral hips. The patient has been able to ambulate and there is low risk for an occult fracture such as a acetabular fracture. I believe this is more likely related to arthritis. I will recommend follow-up with orthopedics as an outpatient. Diagnostic Imaging Diagonstic Imaging: Xray Plain Films/CT/US/NM/MRI: pelvis, hip Comments [facility], [place] NAME: RAGINI GRAF [facility] REC#: [id number] PT STATUS: REG ER : 1945 PHYSICIAN: RUEL CRAFT MD ADMIT DATE: 06/27/21/ER FS Draft Date of Exam:06/27/21 PELVIS WITH RIGHT HIP 2-3 VIEW INDICATION: Fall and right hip pain. TIME OF EXAM: 12:50 PM No prior studies are available for comparison. Postop changes in lower lumbar spine are noted. The spinal fixation rods with iliac extensions noted. Femoral acetabular alignment is normal bilaterally. Both femoral heads and necks appear to be intact. There are osteoarthritic changes with superior and medial joint space narrowing involving bilateral hips. There appear to be old fracture deformities involving the left-sided superior and inferior pubic rami. Right-sided rami are intact. No acute fractures are seen. IMPRESSION: Chronic and postsurgical changes. No acute bony abnormality is detected. Dictated on workstation # [id number] Dict: 06/27/21 1258 Trans: 06/27/21 1301 [facility] [id number] Interpreted by: LYLA DARNELL MD Electronically signed by: Departure Impression Primary Impression: Right hip pain Disposition: HOME, SELF-CARE Condition: Stable Departure-Patient Inst. Decision time for Depature: 14:01 Referrals: [facility] (PCP) Primary Care Physician SLOANE WHITE APRN (Family) Primary Care Physician Patient Instructions: Hip Pain (DC) Add. Discharge Instructions: You were seen in the emergency department after you fell and have hip pain. It is reassuring that you were able to walk on it after you fell initially. This makes it much less likely that anything is broken. X-ray does show that you have pretty severe arthritis. I will recommend a steroid injection at an orthopedic office visit. Continue to take the medicines you are already taking for pain. All discharge instructions reviewed with patient and/or family. Voiced understanding. RUEL CRAFT MD Jun 27, 2021 12:44
--- NOTE | 2021-06-27 13:01 | Diagnostic Imaging Report ---
INDICATION: Fall and right hip pain. TIME OF EXAM: 12:50 PM No prior studies are available for comparison. Postop changes in lower lumbar spine are noted. The spinal fixation rods with iliac extensions noted. Femoral acetabular alignment is normal bilaterally. Both femoral heads and necks appear to be intact. There are osteoarthritic changes with superior and medial joint space narrowing involving bilateral hips. There appear to be old fracture deformities involving the left-sided superior and inferior pubic rami. Right-sided rami are intact. No acute fractures are seen. IMPRESSION: Chronic and postsurgical changes. No acute bony abnormality is detected. Dictated by: Dictated on workstation # [id number]
[2021-06-27 14:45] VITALS: BP 159/72
== END 2021-06-27 14:45 | disposition home or self-care (01) ==
LOC: EDUNIT# 12:23 → ER FS 12:25
DX: M25.551 Pain in right hip (principal); I10 Essential (primary) hypertension
CPT/HCPCS: 73502

== ENCOUNTER → 2022-10-22 | Outpatient (CLI) | payer MEDICARE, OTHER ==
--- NOTE | 2022-10-22 16:41 | Diagnostic Imaging Report ---
EXAMINATION: Radiographs of the sacrum and coccyx, 3 views. COMPARISON: June 27, 2021. HISTORY: 77-year-old female, sacral pain. FINDINGS: There is incompletely imaged spinal hardware which includes fixation screws extending to the sacrum and bilateral iliac bones. There is less than 1 mm lucency surrounding the fixation screws at the level of the sacrum and iliac bones. There are laminectomy changes of at least L4 and L5. There are mild bilateral sacroiliac degenerative changes. There are partially imaged fixation screws in the right proximal femur. There is scattered degenerative type enthesopathy. There is no radiographically apparent fracture of the sacrum or coccyx. There are chronic appearing deformities of the left superior and inferior pubic rami. There is mild osteoarthritis of both hips. IMPRESSION: 1. No identified acute bony abnormality. 2. Intact partially imaged lumbosacral hardware including fixation screws extending into both iliac bones. 3. Mild osteoarthritis of both hips. 4. Chronic appearing deformities of the left superior and inferior pubic rami. 5. Mild bilateral sacroiliac degenerative changes. Dictated by: Dictated on workstation # [id number]
== END ==
LOC: RAD FS 11:41
PROVIDERS: ATTEND Nurse Practitioner Family
DX: M16.0 Bilateral primary osteoarthritis of hip (principal); M46.1 Sacroiliitis, not elsewhere classified
CPT/HCPCS: 72220

== ENCOUNTER 2023-01-20 10:55 | Emergency (ER) | payer MEDICARE, OTHER ==
--- NOTE | 2023-01-20 11:12 | ED Fall/Injury ---
General Chief Complaint: Laceration Stated Complaint: CHIN LAC Source: patient, family Exam Limitations: no limitations History of Present Illness Date Seen by Provider: January 20, 2023 Time Seen by Provider: 10:56 Initial Comments 77-year-old female coming in after she tripped, fell, hit her face shortly prior to arrival. Having left chest wall pain and some jaw pain as well. She believes she chipped some teeth and has a laceration to her chin. She is unsure of her last tetanus vaccine was within the last 5 years. Otherwise denying any headache, nausea, vomiting, weakness, numbness, vision changes, shortness of breath, abdominal pain, extremity pain, or any other concerns. Allergies and Home Medications Allergies Coded Allergies: Sulfa (Sulfonamide Antibiotics) (Verified Allergy, Unknown, 06/27/21) adhesive tape (Verified Allergy, Unknown, BLISTERS, 06/27/21) hydrocodone (Verified Allergy, Unknown, 06/27/21) Patient Home Medication List Home Medication List Reviewed: Yes Review of Systems Review of Systems Constitutional: No fever Eyes: No Symptoms Reported Ears, Nose, Mouth, Throat: mouth pain (Chipped teeth) Respiratory: no symptoms reported Cardiovascular: no symptoms reported Gastrointestinal: no symptoms reported Genitourinary: no symptoms reported Musculoskeletal: no symptoms reported Skin: see HPI Psychiatric/Neurological: No Symptoms Reported Past Mxykjim-Sunyyy-Hwncgf Hx Patient Social History Tobacco Use?: No Immunizations Up To Date First/Initial COVID19 Vaccinat: December 2020 Second COVID19 Vaccination Jimbo: January 2021 Seasonal Allergies Seasonal Allergies: No Past Medical History Surgeries: Yes (Bilateral knee replacements) Hysterectomy, Orthopedic Respiratory: No Cardiac: Yes High Cholesterol, Hypertension 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 oz. kg; 32.00 BMI Method:Actual General Appearance: WD/WN, no apparent distress HEENT: PERRL/EOMI, pharynx normal, other (5 cm full-thickness through and through laceration just below the right side of her lower lip into her mouth) Neck: non-tender, full range of motion, supple, normal inspection Cardiovascular: regular rate, rhythm, no edema, no murmur Respiratory: chest non-tender, lungs clear, normal breath sounds, no respiratory distress, no accessory muscle use Gastrointestinal: normal bowel sounds, non tender, soft; No distended, No guarding, No rebound Back: normal inspection, no CVA tenderness, no vertebral tenderness Extremities: normal range of motion, non-tender, normal inspection, no pedal edema, no calf tenderness, normal capillary refill Neurologic/Psychiatric: no motor/sensory deficits, alert, normal mood/affect, oriented x 3 Skin: normal color, warm/dry, other (Scrapes to the knuckles on her right hand) Shyam Coma Score Best Eye Response: (4) Open Spontaneously Best Verbal Response: (5) Oriented Best Motor Response: (6) Obeys Commands Procedures/Interventions Wound Location: Face Other Wound Location chin Wound Length (cm): 5 Wound's Depth, Shape: into muscle (complete thickness through chin into matilde th) Wound Explored: clean Irrigated w/ Saline (ccs): 500 Anesthesia: 1% Lidocaine Volume Anesthetic (ccs): 8 Progress On the inside of her mouth there are 3 simple interrupted 5-0 chromic gut sutures. Internally there are 3 5-0 vicryl sutures. Externally there are 7 5-0 fast absorbing gut sutures. Progress/Results/Core Measures Results/Orders My Orders Orders - RUEL CRAFT MD Oxycodone Immediate Rel Tablet (Oxyir Ta (01/20/23 11:15) Dipht,Pertuss(Acell),Tet Adult (Boostrix (01/20/23 11:15) Ct Head/Cervical Spine Wo (01/20/23 11:07) Chest 1 View Ap/Pa Only (01/20/23 11:07) Medications Given in ED Current Medications Medications Dose Ordered Sig/Cely Route Start Time Stop Time Status Last Admin Dose Admin Diphtheria/ Tetanus/Acell Pertussis 0.5 ml ONCE ONCE IM 01/20/23 11:15 01/20/23 11:16 DC 01/20/23 11:16 0.5 ML Oxycodone HCl 2.5 mg ONCE ONCE PO 01/20/23 11:15 01/20/23 11:16 DC 01/20/23 11:14 2.5 MG Vital Signs/I&O 01/20/23 11:00 Temp 36.2 Pulse 81 Resp 18 B/P (MAP) 138/59 (85) Pulse Ox 97 O2 Delivery Room Air Progress Progress Note : Progress Note 77-year-old female coming in after tripping and falling. ABCs were intact and vitals were stable on presentation. Physical exam with a full-thickness laceration through her chin into her mouth. This was closed in a layered closure with all absorbable suture. Tetanus updated today. Given oxycodone for pain here. CT head and cervical spine ordered and interpreted by me showing no obvious bleed or fracture. Chest x-ray ordered and interpreted by me showing no pneumothorax, no hemothorax, and normal cardiac silhouette. No obviously displaced rib fractures. I believe the patient is otherwise stable for discharge with outpatient follow-up. She was sent home with strict return precautions She will go home with antibiotics Diagnostic Imaging Diagonstic Imaging: Xray (chest), CT (head and c spine) Comments [facility], [place] NAME: MILLWOODRAGINI [facility] REC#: [id number] PT STATUS: REG ER : 1945 PHYSICIAN: RUEL CRAFT MD ADMIT DATE: 01/20/23/ER FS Draft Date of Exam:01/20/23 CT HEAD/CERVICAL SPINE WO Clinical indication: Patient fell and hit head. Exam: Head CT without IV contrast with sagittal and coronal reformations. Axial CT scan of the cervical spine with sagittal and coronal reformations. Auto Exposure Controls were utilized during the CT exam to meet ALARA standards for radiation dose reduction. Comparison: CT scan of the head and cervical spine without contrast dated 01/05/2020. Findings: Head CT: There is no evidence of acute cerebral infarct, intracranial hemorrhage, or gross mass effect. The brain parenchymal volume appears appropriate for patient's age. There is normal lino-white matter distinction. There is no significant midline shift or herniation. There is no evidence of hydrocephalus. The basal cisterns are unremarkable. There is a small area of intracranial soft tissue swelling involving the right forehead/anterior right side of the head. There is no skull fracture. Otherwise, the skull, extracranial soft tissue, and orbits are unremarkable. The paranasal sinuses are unremarkable. There is a small amount of consolidation involving left mastoid air cells with sclerosis. Cervical spine: There is no acute cervical spine fracture. There is degenerative grade 1 anterolisthesis C2 on C3 and degenerative grade 1 anterolisthesis of T1 on T2. There are bilateral uncinate spurs and diffuse disk bulges with severe loss of disk space height seen at C3-C7 levels. There is severe bilateral C3-C4 and C4-C5 neural foramen narrowing. There is severe right C5-C6 neural foramen narrowing and moderate left C5-C6 neural foramen narrowing. There is mild to moderate bilateral C6-C7 neural foramen narrowing. There is no significant neck soft tissue abnormality. Visualized upper lung salvador are clear. Impression: 1: There is no evidence of acute intracranial process. There is no skull fracture. 2: There is no acute cervical spine fracture. Dictated on workstation # [id number] Dict: 01/20/23 1153 Trans: 01/20/23 1202 [facility]B [id number] Interpreted by: ALFRED ABURTO MD Electronically signed by: [facility] [place] NAME: M[facility]WOODRAGINI [facility] REC#: [id number] PT STATUS: REG ER : 1945 PHYSICIAN: RUEL CRAFT MD ADMIT DATE: 01/20/23/ER FS Draft Date of Exam:01/20/23 CHEST 1 VIEW AP/PA ONLY CLINICAL INDICATIONS: Patient status post fall with left-sided pain. EXAM: Portable chest x-ray upright view. COMPARISON: None. FINDINGS: Lungs are clear. There is no pleural effusion or pneumothorax. Pulmonary vasculature and cardiac silhouette are within normal limits. Slight elevated right hemidiaphragm noted. There are surgical clips overlying the right hemithorax region. There are hypertrophic spurs involving the thoracic spine and degenerative spurs involving the glenohumeral joint regions. There is thoracolumbar fusion hardware partially visualized. Bones show no fracture. IMPRESSION: There is no radiographic evidence of acute cardiopulmonary process. Dictated on workstation # [id number] Dict: 01/20/23 1200 Trans: 01/20/23 1204 CVB [id number] Interpreted by: ALFRED ABURTO MD Electronically signed by: Departure Impression Primary Impression: Fall Qualified Codes: W19.XXXA - Unspecified fall, initial encounter Additional Impressions: Chin laceration Qualified Codes: S01.81XA - Laceration without foreign body of other part of head, initial encounter Chest wall pain Disposition: 01 HOME, SELF-CARE Condition: Stable Departure-Patient Inst. Decision time for Depature: 12:35 Referrals: SLOANE WHITE APRN (PCP) Primary Care Physician [facility] (Family) Primary Care Physician Patient Instructions: Laceration Repair With Stitches ED Add. Discharge Instructions: The stitches are all absorbable, you may feel them in your mouth for weeks, sometimes he can feel bumps in your skin for months, but it eventually will all absorb. The ones on the outside are not as strong, and try not to get them wet at all for 3 days. After 3 days, water can run over them briefly in the shower, but do not submerge them in any type of water. After 10 days, you can take baths and submerge in water like he normally would. You will be on antibiotics for the next week as well. Take Tylenol as needed for pain. Scripts Cephalexin (Cephalexin) 500 Mg Tablet 500 MG PO TID for 7 Days, #15 TAB Prov: RUEL CRAFT MD 01/20/23 Work/School Note: Family Work Note Patient Received Medical Care In the Emergency Department On: January 20, 2023 Patient Will Be Able to Return to Work/School On: January 21, 2023 RUEL CRAFT MD January 20, 2023 11:12
[2023-01-20] MEDS ORDERED: TETANUS,DIPTH,PERTUSS P/F (BOOSTRIX) 0.5 ML VIAL IM ONE (11:15)
--- NOTE | 2023-01-20 12:03 | Diagnostic Imaging Report ---
Clinical indication: Patient fell and hit head. Exam: Head CT without IV contrast with sagittal and coronal reformations. Axial CT scan of the cervical spine with sagittal and coronal reformations. Auto Exposure Controls were utilized during the CT exam to meet ALARA standards for radiation dose reduction. Comparison: CT scan of the head and cervical spine without contrast dated 01/05/2020. Findings: Head CT: There is no evidence of acute cerebral infarct, intracranial hemorrhage, or gross mass effect. The brain parenchymal volume appears appropriate for patient's age. There is normal lino-white matter distinction. There is no significant midline shift or herniation. There is no evidence of hydrocephalus. The basal cisterns are unremarkable. There is a small area of intracranial soft tissue swelling involving the right forehead/anterior right side of the head. There is no skull fracture. Otherwise, the skull, extracranial soft tissue, and orbits are unremarkable. The paranasal sinuses are unremarkable. There is a small amount of consolidation involving left mastoid air cells with sclerosis. Cervical spine: There is no acute cervical spine fracture. There is degenerative grade 1 anterolisthesis C2 on C3 and degenerative grade 1 anterolisthesis of T1 on T2. There are bilateral uncinate spurs and diffuse disk bulges with severe loss of disk space height seen at C3-C7 levels. There is severe bilateral C3-C4 and C4-C5 neural foramen narrowing. There is severe right C5-C6 neural foramen narrowing and moderate left C5-C6 neural foramen narrowing. There is mild to moderate bilateral C6-C7 neural foramen narrowing. There is no significant neck soft tissue abnormality. Visualized upper lung salvador are clear. Impression: 1: There is no evidence of acute intracranial process. There is no skull fracture. 2: There is no acute cervical spine fracture. Dictated by: Dictated on workstation # [id number]
--- NOTE | 2023-01-20 12:04 | Diagnostic Imaging Report ---
CLINICAL INDICATIONS: Patient status post fall with left-sided pain. EXAM: Portable chest x-ray upright view. COMPARISON: None. FINDINGS: Lungs are clear. There is no pleural effusion or pneumothorax. Pulmonary vasculature and cardiac silhouette are within normal limits. Slight elevated right hemidiaphragm noted. There are surgical clips overlying the right hemithorax region. There are hypertrophic spurs involving the thoracic spine and degenerative spurs involving the glenohumeral joint regions. There is thoracolumbar fusion hardware partially visualized. Bones show no fracture. IMPRESSION: There is no radiographic evidence of acute cardiopulmonary process. Dictated by: Dictated on workstation # [id number]
[2023-01-20] MEDS ORDERED: CEPH500T PO (12:31)
[2023-01-20 12:32] VITALS: BP 128/70
== END 2023-01-20 12:33 | disposition home or self-care (01) ==
LOC: EDUNIT# 10:55 → ER FS 10:56
DX: S01.81XA Laceration without foreign body of other part of head, initial encounter (principal); S60.511A Abrasion of right hand, initial encounter; R07.89 Other chest pain; Z23 Encounter for immunization; Z88.1 Allergy status to other antibiotic agents; W01.198A Fall on same level from slipping, tripping and stumbling with subsequent striking against other object, initial encounter
CPT/HCPCS: 70450; 71045; 72125; 90715

== ENCOUNTER 2023-05-25 09:37 | Observation (INO) | payer MEDICARE, OTHER ==
[~2023-05-25] VITALS: Ht 147.3 cm; Wt 69.2 kg
[~2023-05-25 09:37] MED LIST: CEPH500T PO
--- NOTE | 2023-05-25 09:59 | ED General ---
General Stated Complaint: L ANKLE PAIN - FEVER - HEADACHE Source of Information: Patient Exam Limitations: No Limitations History of Present Illness Date Seen by Provider: May 25, 2023 Time Seen by Provider: 09:59 Initial Comments Patient is a 77-year-old female with a history of hypertension who presents to the emergency department with a chief complaint of left leg swelling, redness, low-grade fever. She is currently being worked up at for Lewy body dementia. She had biopsies done at around May 16. She and her son state that the wound on the left lateral lower leg has been draining and she has noticed increased swelling and pain in that area. She denies any other symptoms of illness. No nausea, shortness of breath, GI or symptoms. No runny nose, sore throat or COVID-like complaints. She has had good appetite. She did take her blood pressure medications this morning which include carvedilol. She takes losartan at night. She and her son who is at the bedside do not know if she had a soft tissue biopsy versus a bone biopsy. She is not on blood thinners. Timing/Duration: 2-3 Days Severity: Moderate Modifying Factors: worse with Movement Associated Systoms: Fever/Chills, Headaches, Malaise Allergies and Home Medications Allergies Coded Allergies: Sulfa (Sulfonamide Antibiotics) (Verified Allergy, Unknown, 06/27/21) adhesive tape (Verified Allergy, Unknown, BLISTERS, 06/27/21) hydrocodone (Verified Allergy, Unknown, 06/27/21) Patient Home Medication List Home Medication List Reviewed: Yes Acyclovir (Acyclovir) 400 Mg Tablet, 400 MG PO BID, (Reported) Entered as Reported by: JAYDON SWANSON on 05/26/231220 Last Action: Continued Amlodipine Besylate (Amlodipine Besylate) 5 Mg Tablet, 5 MG PO DAILY, (Reported) Entered as Reported by: JAYDON SWANSON on 05/26/231220 Last Action: Continued Atorvastatin Calcium (Atorvastatin Calcium) 40 Mg Tablet, 40 MG PO HS, (Reported) Entered as Reported by: JAYDON SWANSON on 05/26/231220 Last Action: Continued Calcium Carb & Citrate/Vit D3 (Citracal + D ER Tablet) 600MG-12.5 Tablet.er, 1 EACH PO DAILY, (Reported) Entered as Reported by: JAYDON SWANSON on 05/26/231224 Last Action: Converted Carvedilol (Carvedilol) 25 Mg Tablet, 25 MG PO BID, (Reported) Entered as Reported by: JAYDON SWANSON on 05/26/231220 Last Action: Converted Cephalexin (Cephalexin) 250 Mg Capsule, 500 MG PO QID Prescribed by: KENNEY MONTESINOS on 05/27/23 0807 Citalopram Hydrobromide (Citalopram HBr) 10 Mg Tablet, 10 MG PO DAILY, (Reported) Entered as Reported by: JAYDON SWANSON on 05/26/231220 Last Action: Continued Colchicine (Colchicine) 0.6 Mg Tablet, 0.6 MG PO DAILY, (Reported) Entered as Reported by: JAYDON SWANSON on 05/26/231220 Last Action: Continued Docusate Sodium (Stool Softener) 100 Mg Tablet, 100 MG PO DAILY, (Reported) Entered as Reported by: JAYDON SWANSON on 05/26/231224 Last Action: Converted Famotidine (Famotidine) 20 Mg Tablet, 20 MG PO BID, (Reported) Entered as Reported by: JAYDON SWANSON on 05/26/231220 Last Action: Continued Gabapentin (Neurontin) 300 Mg Capsule, 300 MG PO TID, (Reported) Entered as Reported by: JAYDON SWANSON on 05/26/231220 Last Action: Continued Iron,Carbonyl/Ascorbic Acid (Vitron-C Tablet) 65 Mg Iron-125 Mg Tablet.dr, 1 EACH PO HS, (Reported) Entered as Reported by: JAYDON SWANSON on 05/26/231224 Last Action: Converted Loratadine (Claritin) 10 Mg Tablet, 10 MG PO HS, (Reported) Entered as Reported by: JAYDON SWANSON on 05/26/231224 Last Action: Continued Losartan Potassium (Cozaar) 100 Mg Tablet, 100 MG PO DAILY, (Reported) Entered as Reported by: JAYDON SWANSON on 05/26/231220 Last Action: Continued Melatonin (Melatonin) 5 Mg Tablet, 5 MG PO HS, (Reported) Entered as Reported by: AJYDON SWANSON on 05/26/231224 Last Action: Converted Prednisolone Acetate (Prednisolone Acetate) 1 % Drops.susp, 1 DROP OS BID, (Reported) Entered as Reported by: JAYDON SWANSON on 9/11/23 1222 Last Action: Continued Trazodone HCl (Trazodone HCl) 50 Mg Tablet, 25 MG PO HS, (Reported) Entered as Reported by: JAYDON SWANSON on 05/26/23 1221 Last Action: Continued Review of Systems Review of Systems Constitutional: see HPI EENTM: no symptoms reported Respiratory: no symptoms reported Cardiovascular: no symptoms reported Gastrointestinal: no symptoms reported Genitourinary: no symptoms reported : No Musculoskeletal: other (leg pain swelling) Skin: other (rash) Psychiatric/Neurological: No Symptoms Reported, Headache Past Zwrxlox-Xfyofn-Lteuwl Hx Immunizations Up To Date First/Initial COVID19 Vaccinat: December 2020 Second COVID19 Vaccination Jimbo: January 2021 Third COVID19 Vaccination Date: December 2020 Seasonal Allergies Seasonal Allergies: No Past Medical History Surgery/Hospitalization HX: High Cholesterol; HTN; Neuropathy; Corneal Implant; Bilateral Knee Replacement. 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 oz. kg; 32.00 BMI Method:Actual General Appearance: No Apparent Distress, WD/WN Eyes: Bilateral Eye Normal Inspection, Bilateral Eye PERRL, Bilateral Eye EOMI HEENT: PERRL/EOMI, Pharynx Normal Neck: Supple Respiratory: Lungs Clear, Normal Breath Sounds, No Accessory Muscle Use, No Respiratory Distress Cardiovascular: Regular Rate, Rhythm Gastrointestinal: Non Tender, Soft Extremity: Other (left leg pain, swelling to ankle; small skin wound from bx site left distal leg. no obvious drainage.) Neurologic/Psychiatric: Alert, Oriented x3, No Motor/Sensory Deficits, Normal Mood/Affect, credit operations specialist II-XII Norm as Tested Skin: Normal Color, Warm/Dry, Other (light erythema noted to the entire left lower leg) Focused Exam Lactate Level 05/25/23 09:56: Lactic Acid Level 1.94 Lactic Acid Level Laboratory Tests Test 05/25/23 09:56 Lactic Acid Level 1.94 MMOL/L (0.50-2.00) Progress/Results/Core Measures Suspected Sepsis SIRS Temperature: Pulse: Respiratory Rate: Laboratory Tests 05/25/23 09:56: White Blood Count 5.3 Blood Pressure / Mean: 05/25/23 09:56: Lactic Acid Level 1.94 Laboratory Tests 05/25/23 09:56: Creatinine 1.11, INR Comment 1.0, Platelet Count 155, Total Bilirubin 0.4 Results/Orders Lab Results Laboratory Tests Test 05/25/23 09:56 05/25/23 11:03 Range/Units White Blood Count 5.3 4.3-11.0 10^3/uL Red Blood Count 3.32 L 3.80-5.11 10^6/uL Hemoglobin 10.9 L 11.5-16.0 g/dL Hematocrit 34 L 35-52 % Mean Corpuscular Volume 103 H 80-99 fL Mean Corpuscular Hemoglobin 33 25-34 pg Mean Corpuscular Hemoglobin Concent 32 32-36 g/dL Red Cell Distribution Width 13.9 10.0-14.5 % Platelet Count 155 130-400 10^3/uL Mean Platelet Volume 10.9 9.0-12.2 fL Immature Granulocyte % (Auto) 1 % Neutrophils (%) (Auto) 69 42-75 % Lymphocytes (%) (Auto) 15 12-44 % Monocytes (%) (Auto) 13 H 0-12 % Eosinophils (%) (Auto) 1 0-10 % Basophils (%) (Auto) 1 0-10 % Neutrophils # (Auto) 3.7 1.8-7.8 10^3/uL Lymphocytes # (Auto) 0.8 L 1.0-4.0 10^3/uL Monocytes # (Auto) 0.7 0.0-1.0 10^3/uL Eosinophils # (Auto) 0.0 0.0-0.3 10^3/uL Basophils # (Auto) 0.0 0.0-0.1 10^3/uL Immature Granulocyte # (Auto) 0.0 0.0-0.1 10^3/uL Erythrocyte Sedimentation Rate 17 0-30 MM/HR Prothrombin Time 13.3 12.2-14.7 SEC INR Comment 1.0 0.8-1.4 Activated Partial Thromboplast Time 33 24-35 SEC D-Dimer 1.26 H 0.00-0.49 UG/ML Sodium Level 133 L 135-145 MMOL/L Potassium Level 3.4 L 3.6-5.0 MMOL/L Chloride Level 101 98-107 MMOL/L Carbon Dioxide Level 21 21-32 MMOL/L Anion Gap 11 5-14 MMOL/L Blood Urea Nitrogen 12 7-18 MG/DL Creatinine 1.11 0.60-1.30 MG/DL Estimat Glomerular Filtration Rate 52 BUN/Creatinine Ratio 11 Glucose Level 222 H 70-105 MG/DL Lactic Acid Level 1.94 0.50-2.00 MMOL/L Calcium Level 9.3 8.5-10.1 MG/DL Corrected Calcium 9.6 8.5-10.1 MG/DL Total Bilirubin 0.4 0.1-1.0 MG/DL Aspartate Amino Transf (AST/SGOT) 33 5-34 U/L Alanine Aminotransferase (ALT/SGPT) 35 0-55 U/L Alkaline Phosphatase 111 40-136 U/L Total Protein 5.6 L 6.4-8.2 GM/DL Albumin 3.6 3.2-4.5 GM/DL Influenza Type A (RT-PCR) Not Detected Not Detecte Influenza Type B (RT-PCR) Not Detected Not Detecte SARS-CoV-2 RNA (RT-PCR) Detected H Not Detecte Urine Color YELLOW Urine Clarity CLEAR Urine pH 7.5 5-9 Urine Specific [place] 1.020 1.016-1.022 Urine Protein NEGATIVE NEGATIVE Urine Glucose (UA) NEGATIVE NEGATIVE Urine Ketones NEGATIVE NEGATIVE Urine Nitrite NEGATIVE NEGATIVE Urine Bilirubin NEGATIVE NEGATIVE Urine Urobilinogen 0.2 < = 1.0 MG/DL Urine Leukocyte Esterase NEGATIVE NEGATIVE Urine RBC (Auto) NEGATIVE NEGATIVE Urine RBC RARE /HPF Urine WBC NONE /HPF Urine Squamous Epithelial Cells 2-5 /HPF Urine Crystals PRESENT H /LPF Urine Amorphous Sediment RARE LUIS ARMANDO PHOSPHATE H /LPF Urine Bacteria FEW H /HPF Urine Casts NONE /LPF Urine Mucus NEGATIVE /LPF Urine Culture Indicated CULTURE PENDING My Orders Orders - MATEO DANIEL MD Cbc With Automated Diff (05/25/23 10:17) Comprehensive Metabolic Panel (05/25/23 10:17) Blood Culture (05/25/23 10:17) Sputum Culture (05/25/23 10:17) Urinalysis (05/25/23 10:17) Urine Culture (05/25/23 10:17) Protime With Inr (05/25/23 10:17) Partial Thromboplastin Time (05/25/23 10:17) Chest 1 View, Ap/Pa Only (05/25/23 10:17) Ed Iv/Invasive Line Start (05/25/23 10:17) Ed Iv/Invasive Line Start (05/25/23 10:17) Vital Signs Adult Sepsis Patie Q15M (05/25/23 10:17) O2 (05/25/23 10:17) Remove Rings In Anticipation O (05/25/23 10:17) Lactic Acid Analyzer (05/25/23 10:17) Erythrocyte Sedimentation Rate (05/25/23 10:17) Tibia/Fibula, Left, 2 Views (05/25/23 10:17) Ns Iv 1000 Ml (Ns Iv 1000 Ml) (05/25/23 10:30) Covid 19 Inhouse Test (05/25/23 10:25) Influenza A And B By Pcr (05/25/23 10:25) Fibrin Degradation Products (05/25/23 10:43) Ns Iv 1000 Ml (Ns Iv 1000 Ml) (05/25/23 12:13) Nirmatrelvir/Ritonavir (Eua) (Paxlovid C (05/25/23 12:30) Cephalexin Capsule (Cephalexin Capsule) (05/25/23 12:28) Vital Signs/I&O 05/25/23 09:43 Temp 37.1 Pulse 78 Resp 16 B/P (MAP) 84/46 (59) Pulse Ox 94 O2 Delivery Room Air Capillary Refill : Progress Note #1: Time: 10:24 Progress Note Initial blood pressures with a large cuff noted to be in the upper 70s low 80s systolic. Cuff was replaced with a "small" and her blood pressure is 94/43. Heart rate 68. Room air sats 90 Progress Note #2: Time: 12:26 Progress Note Patient seen and evaluated by me. Evaluation today includes physical exam, CBC, CMP, ESR, coags, UA, DDimer, Covid and FLu test, CXR and left tibfib xray. Pertinent physical exam findings - WDWN female in NAD. She has some mild edema and erythema to the LLE. Tenderness at the site of a skin wound left lower lateral leg. No purulent drainage. The rest of her exam is benign. DDx based on H&P includes - cellulitis, DVT, Covid. Patients labs independently reviewed and interpreted by me. Her CBC shows a WBC of 5.3 with 13% monocytes. Hgb slightly low at 10.9 with a 34 HCT. Platelets normal. Chem shows a slightly low potassium at 3.4 with a glu 222. ESR is 15. Coags WNL and DDimer slightly elevatd at 1.26 (corrects for age). Her flu is negative and Covid is POSITIVE. Cxr is unremarkable as is her tib fib xray. Diagnostic Imaging Diagonstic Imaging: Xray Plain Films/CT/US/NM/MRI: chest [facility] [place] [place] NAME: RAGINI GRAF [facility] REC#: [id number] PT STATUS: REG ER : 1945 PHYSICIAN: MATEO DANIEL MD ADMIT DATE: 05/25/23/ER Draft Date of Exam:05/25/23 CHEST 1 VIEW, AP/PA ONLY INDICATION: Hypertension with left leg pain and swelling. Dyspnea. COMPARISON: 01/20/2023. DISCUSSION: Single portable upright view of the chest was obtained. Eventration of the right hemidiaphragm is stable. Fusion of the thoracolumbar spine is incompletely viewed. Normal heart size. No consolidation, pleural fluid, or pneumothorax. Advanced degenerative disease noted within the right shoulder, stable. There appears to be an interval right humeral neck fracture, incompletely viewed. IMPRESSION: 1. There appears to be a new right humeral neck fracture. Recommend dedicated imaging of the shoulder to further evaluate. 2. No acute cardiopulmonary process. Dictated on workstation # [id number] Dict: 05/25/23 1036 Trans: 05/25/23 1042 [facility] [id number] Interpreted by: ARNAV OGDEN MD Electronically signed by: Diagonstic Imaging: Xray Comments [facility] [place] [place] NAME: RAGINI GRAF [facility] REC#: [id number] PT STATUS: REG ER : 1945 PHYSICIAN: MATEO DANIEL MD ADMIT DATE: 05/25/23/ER Signed Date of Exam:05/25/23 TIBIA/FIBULA, LEFT, 2 VIEWS EXAMINATION: Left tibia and fibular radiographs, 2 views. COMPARISON: None. HISTORY: 77-year-old female, skin drainage following skin biopsy in the region of the left calf. Swelling and pain. FINDINGS: There is a total left knee prosthesis. The hardware is intact. There is no identified periprosthetic lucency. There is no cortical or aggressive bone destruction. There is metallic wire in the region of the fifth metatarsal. There are areas of ossification at the volar aspect of the foot at the level of the calcaneus which are likely long-standing. There is no identified soft tissue gas. There is reticulation of the subcutaneous fat at the level of the mid tibia and fibula. IMPRESSION: 1. No radiographic evidence of osteomyelitis or other acute osseous abnormality. 2. No identified unexpected radiopaque foreign body at the level of the left tibia or fibula specifically. Dictated by: Dictated on workstation # [id number] Dict: 05/25/23 1035 Trans: 05/25/23 1043 [facility] [id number] Interpreted by: TERI PELAEZ MD Electronically signed by: TERI PELAEZ MD 05/25/23 1043 Departure Impression Primary Impression: COVID-19 Additional Impression: Cellulitis of left leg Disposition: ADMITTED INPATIENT Condition: Stable Admissions Decision to Admit Reason: Admit from ER (General) Decision to Admit/Date: May 25, 2023 Time/Decision to Admit Time: 12:36 Departure-Patient Inst. Referrals: NO,LOCAL PHYSICIAN (PCP/Family) Primary Care Physician Patient Instructions: COVID-19 ED, Cellulitis (Skin Infection), Adult ED Add. Discharge Instructions: I have given you the Paxlovid medication for COVID-19. Please take this as directed. This will help shorten your course of the COVID infection. Also Keflex 500 mg tablets 3 times daily for the infection in your left leg. Keep the wound on the left lower leg clean and dry. Drink plenty of fluids to stay well-hydrated. Continue your other home daily medications. Please make a follow-up appointment on Friday with your primary care provider for next week. Return to the emergency department for any new, concerning or emergent complaints. Scripts Cephalexin (Cephalexin) 250 Mg Capsule 500 MG PO QID for 7 Days, #28 CAP 0 Refills Prov: KENNEY MONTESINOS MD 05/27/23 MATEO DANIEL MD May 25, 2023 09:59
[2023-05-25 10:28] LABS: BASOPHILS % (AUTO) 1 % (0-10); EOSINOPHILS % (AUTO) 1 % (0-10); HEMATOCRIT 34 % (35-52); HEMOGLOBIN 10.9 g/dL (11.5-16.0); LYMPHOCYTES # (AUTO) 0.8 10^3/uL (1.0-4.0); LYMPHOCYTES % (AUTO) 15 % (12-44); MEAN CORPUSCULAR HEMOGLOBIN 33 pg (25-34); MEAN CORPUSCULAR HGB CONC 32 g/dL (32-36); MEAN CORPUSCULAR VOLUME 103 fL (80-99); MEAN PLATELET VOLUME 10.9 fL (9.0-12.2); MONOCYTES # (AUTO) 0.7 10^3/uL (0.0-1.0); MONOCYTES % (AUTO) 13 % (0-12); NEUTROPHILS # (AUTO) 3.7 10^3/uL (1.8-7.8); NEUTROPHILS % (AUTO) 69 % (42-75); PLATELET COUNT 155 10^3/uL (130-400); WHITE BLOOD COUNT 5.3 10^3/uL (4.3-11.0)
[2023-05-25] MEDS ORDERED: NS IV 1000 ML 1,000 ML IV SCH (10:30)
[2023-05-25 10:31] LABS: PROTHROMBIN TIME PATIENT 13.3 SEC (12.2-14.7)
[2023-05-25 10:39] LABS: ALBUMIN 3.6 GM/DL (3.2-4.5); BILIRUBIN,TOTAL 0.4 MG/DL (0.1-1.0); CALCIUM 9.3 MG/DL (8.5-10.1); CREATININE SERUM 1.11 MG/DL (0.60-1.30); POTASSIUM 3.4 MMOL/L (3.6-5.0); TOTAL PROTEIN 5.6 GM/DL (6.4-8.2)
--- NOTE | 2023-05-25 10:41 | Diagnostic Imaging Report ---
EXAMINATION: Left tibia and fibular radiographs, 2 views. COMPARISON: None. HISTORY: 77-year-old female, skin drainage following skin biopsy in the region of the left calf. Swelling and pain. FINDINGS: There is a total left knee prosthesis. The hardware is intact. There is no identified periprosthetic lucency. There is no cortical or aggressive bone destruction. There is metallic wire in the region of the fifth metatarsal. There are areas of ossification at the volar aspect of the foot at the level of the calcaneus which are likely long-standing. There is no identified soft tissue gas. There is reticulation of the subcutaneous fat at the level of the mid tibia and fibula. IMPRESSION: 1. No radiographic evidence of osteomyelitis or other acute osseous abnormality. 2. No identified unexpected radiopaque foreign body at the level of the left tibia or fibula specifically. Dictated by: Dictated on workstation # [id number]
--- NOTE | 2023-05-25 10:42 | Diagnostic Imaging Report ---
INDICATION: Hypertension with left leg pain and swelling. Dyspnea. COMPARISON: 01/20/2023. DISCUSSION: Single portable upright view of the chest was obtained. Eventration of the right hemidiaphragm is stable. Fusion of the thoracolumbar spine is incompletely viewed. Normal heart size. No consolidation, pleural fluid, or pneumothorax. Advanced degenerative disease noted within the right shoulder, stable. There appears to be an interval right humeral neck fracture, incompletely viewed. IMPRESSION: 1. There appears to be a new right humeral neck fracture. Recommend dedicated imaging of the shoulder to further evaluate. 2. No acute cardiopulmonary process. Dictated by: Dictated on workstation # [id number]
[2023-05-25 10:58] LABS: ERYTHROCYTE SEDIMENTATION RATE 17 MM/HR (0-30)
[2023-05-25 11:24] LABS: CLARITY,URINE CLEAR; COLOR,URINE YELLOW
[2023-05-25 11:25] LABS: BILIRUBIN,URINE NEGATIVE (NEGATIVE); GLUCOSE, URINE (UA) NEGATIVE (NEGATIVE); KETONES,URINE NEGATIVE (NEGATIVE); LEUKOCYTE ESTERASE ,URINE NEGATIVE (NEGATIVE); NITRITE,URINE NEGATIVE (NEGATIVE); PH,URINE 7.5 (5-9); PROTEIN,URINE NEGATIVE (NEGATIVE)
[2023-05-25 11:26] LABS: AMORPHOUS SEDIMENT,UR RARE AMOR PHOSPHATE /LPF; BACTERIA,URINE FEW /HPF; RBC,URINE RARE /HPF
[2023-05-25] MEDS ORDERED: NS IV 1000 ML 1,000 ML IV STA (12:13)
[2023-05-25] MEDS ORDERED: CEPH500T PO (12:26)
[2023-05-25] MEDS ORDERED: CEPHALEXIN 250 MG CAPSULE PO STA (12:28)
[2023-05-25] MEDS ORDERED: NIRMATRELVIR/RITONAVIR (PAXLOVID) TABLET PO SCH ×2 (12:30→13:00)
--- NOTE | 2023-05-25 13:20 | History & Physical-Hospitalist ---
BINA PUENTES MD 05/25/23 1320: History of Present Illness HPI/Chief Complaint Pt is a 77 yo female with medical history significant for HTN and dementia who presented to ED with increased pain and swelling in her LLE and generalized malaise and weakness. She was found to be COVID positive. She reports having a muscle bx last Friday for workup of Lewy Body dementia. Starting on Friday, she reports having increased redness and swelling at the bx site. She also says that for the last couple of days she has felt weak, congested, cough, and chill s. She was admitted for further work-up of possible LLE cellulitis. Source: patient Date Seen 05/25/23 Time Seen by a Provider: 14:45 Attending Physician No,Local Physician PCP Admitting Physician: Attending Physician: Referring Physician Date of Admission Home Medications & Allergies Home Medications Reviewed patient Home Medication Reconciliation performed by pharmacy medication reconciliations porcelain technician and/or nursing. Patients Allergies have been reviewed. Allergies Allergies Coded Allergies Sulfa (Sulfonamide Antibiotics) (Verified Allergy, Unknown, 06/27/21) adhesive tape (Verified Allergy, Unknown, BLISTERS, 06/27/21) hydrocodone (Verified Allergy, Unknown, 06/27/21) Past Lxvsuhz-Jdntpc-Jhvxop Hx Patient Social History Tobacco Use?: No Use of E-Cig and/or Vaping dev: No Substance use?: No Alcohol Use?: No Pt feels they are or have been: No Immunizations Up To Date First/Initial COVID19 Vaccinat: December 2020 Second COVID19 Vaccination Jimbo: January 2021 Seasonal Allergies Seasonal Allergies: No Current Status Advance Directives: No Primary Language: Belarusian Preferred Spoken Language: Belarusian Past Medical History Surgeries: Hysterectomy, Orthopedic High Cholesterol, Hypertension 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 oz. kg; 30.00 BMI Method:Actual General Appearance: No Apparent Distress HEENT: Pharynx Normal Neck: Full Range of Motion Respiratory: Chest Non Tender, Lungs Clear, Normal Breath Sounds, No Accessory Muscle Use, No Respiratory Distress Cardiovascular: Regular Rate, Rhythm Extremity: Inflammation, Pedal Edema, Swelling, Other (Area surrounding bx site on LLE with erythema, edema, pain to palpation) Neurologic/Psychiatric: Alert, Oriented x3, No Motor/Sensory Deficits Skin: Erythema Results Results/Procedures Labs Laboratory Tests 05/25/23 09:56 Patient resulted labs reviewed. Assessment/Plan Admission Diagnosis Cellulitis Admission Status: Observation Reason for Inpatient Admission: COVID-19 and cellulitis Diagnosis/Problems Diagnosis/Problems (1) COVID-19 Status: Acute Assessment & Plan: PLAN: Ritonavir Supportive care Supplemental O2 as needed (2) Cellulitis of left leg Status: Acute Assessment & Plan: No elevation in WBC Area of induration on exam PLAN: IVF Keflex (3) Dementia (4) HTN (hypertension) Assessment & Plan: Holding home medication d/t soft BP, will resume if normalizes ANDRA BERRY DO 05/26/23 0457: History of Present Illness HPI/Chief Complaint CC: Left LE cellulitis with COVID HPI: This is a 77yoWF clinic patient of [facility] who has dementia and just had muscle biopsy to w/u lewy body dementia who now has cellulitis and COVID. Source: patient Past Anvrbjc-Lkecux-Qhtusg Hx Patient Social History Marrital Status: single Employed/Student: retired Smoking Status: Unknown if Ever Smoked Past Medical History High Cholesterol, Hypertension Dementia Review of Systems Constitutional: see HPI, malaise, weakness Skin: other (Erythema of LLE) Physical Exam Physical Exam General Appearance: No Apparent Distress, Chronically ill Respiratory: Lungs Clear, Normal Breath Sounds Extremity: Other (Area surrounding bx site on LLE with erythema, edema, pain to palpation) Neurologic/Psychiatric: Alert, Oriented x3 Assessment/Plan Admission Diagnosis LLE cellulitis Dementia COVID IV abx COVID isolation Admission Status: Observation BINA PUENTES MD May 25, 2023 13:20 ANDRA BERRY DO May 26, 2023 04:57
[2023-05-25] MEDS: NIRMATRELVIR/RITONAVIR (PAXLOVID) TABLET PO SCH ×2 (15:04→20:27)
[2023-05-25] MEDS ORDERED: ONDANSETRON INJECTION 4 MG/2 ML (SDV) IV PRN (15:30)
[2023-05-25] MEDS ORDERED: MELATONIN 3 MG TABLET PO PRN (15:30)
[2023-05-25] MEDS ORDERED: ONDANSETRON 4 MG ORAL DISSOLVE TABLET PO PRN (15:30)
[2023-05-25] MEDS ORDERED: CALCIUM CARBONATE 500 MG CHEW TABLET PO PRN (15:30)
[2023-05-25 15:40] VITALS: BP 142/71
[2023-05-25] MEDS: LACTATED RINGERS 1,000 ML 1,000 ML IV SCH (15:45)
[2023-05-25] MEDS: ENOXAPARIN 40 MG/0.4 ML SYRINGE SC SCH (15:46)
[2023-05-25] MEDS: SENNOSIDES 8.6 MG TABLET PO SCH (20:26)
[2023-05-25] MEDS: ACETAMINOPHEN 325 MG TABLET PO PRN (20:27)
[2023-05-25 20:59] VITALS: BP 133/65
[2023-05-25] MEDS ORDERED: SALINE NASAL SPRAY 45 ML BTL PRN (22:15)
[2023-05-25] MEDS: CEPHALEXIN 250 MG CAPSULE PO SCH (22:19)
[2023-05-25 23:29] VITALS: BP 144/69
[2023-05-26] MEDS: LACTATED RINGERS 1,000 ML 1,000 ML IV SCH (01:30)
[2023-05-26 03:59] VITALS: BP 154/76
[2023-05-26 06:05] LABS: HEMOGLOBIN 10.7 g/dL (11.5-16.0); PLATELET COUNT 132 10^3/uL (130-400)
[2023-05-26 06:07] LABS: BASOPHILS % (AUTO) 1 % (0-10); EOSINOPHILS # (AUTO) 0.1 10^3/uL (0.0-0.3); EOSINOPHILS % (AUTO) 1 % (0-10); HEMATOCRIT 34 % (35-52); LYMPHOCYTES % (AUTO) 23 % (12-44); MEAN CORPUSCULAR HEMOGLOBIN 33 pg (25-34); MEAN CORPUSCULAR HGB CONC 32 g/dL (32-36); MEAN CORPUSCULAR VOLUME 103 fL (80-99); MEAN PLATELET VOLUME 10.8 fL (9.0-12.2); MONOCYTES # (AUTO) 0.9 10^3/uL (0.0-1.0); MONOCYTES % (AUTO) 21 % (0-12); NEUTROPHILS # (AUTO) 2.3 10^3/uL (1.8-7.8); NEUTROPHILS % (AUTO) 54 % (42-75); WHITE BLOOD COUNT 4.3 10^3/uL (4.3-11.0)
[2023-05-26 06:33] LABS: ALBUMIN 3.3 GM/DL (3.2-4.5); BILIRUBIN,TOTAL 0.4 MG/DL (0.1-1.0); CALCIUM 9.2 MG/DL (8.5-10.1); CREATININE SERUM 0.81 MG/DL (0.60-1.30); POTASSIUM 3.3 MMOL/L (3.6-5.0); TOTAL PROTEIN 5.3 GM/DL (6.4-8.2)
[2023-05-26 07:38] LABS: BAND NEUTROPHILS 1 %; LYMPHOCYTES % (MANUAL) 27 %; NEUTROPHILS % (MANUAL) 55 %
[2023-05-26 07:39] LABS: ANISOCYTOSIS SLIGHT; EOSINOPHILS % (MANUAL) 2 %; MONOCYTES % (MANUAL) 15 %
[2023-05-26] MEDS: CEPHALEXIN 250 MG CAPSULE PO SCH ×4 (08:36→20:43)
[2023-05-26] MEDS: NIRMATRELVIR/RITONAVIR (PAXLOVID) TABLET PO SCH (08:36)
[2023-05-26] MEDS: SENNOSIDES 8.6 MG TABLET PO SCH ×2 (08:36→20:47)
[2023-05-26] MEDS ORDERED: POTASSIUM CHLORIDE 20 MEQ TABLET PO ONE (08:45)
[2023-05-26 08:46] VITALS: BP 159/77
--- NOTE | 2023-05-26 08:52 | Diagnostic Imaging Report ---
PROCEDURE: US left lower extremity venous. TECHNIQUE: Multiple real-time grayscale images were obtained over the left lower extremity in various projections. Additional duplex Doppler and color Doppler images were also obtained. INDICATION: Left lower extremity cellulitis. FINDINGS: There is no evidence of left lower extremity DVT. Left lower extremity deep venous system shows normal compressibility with normal response to augmentation and Valsalva. No fluid collection or mass is detected. IMPRESSION: No evidence of left lower extremity DVT. Dictated by: Dictated on workstation # [id number]
--- NOTE | 2023-05-26 11:34 | Progress Note ---
Subjective Subjective/Events-last exam She states she is feeling a little better, her leg is still store. Reports fracture in right shoulder around March, is to have surgery as soon as she can, sees him later this month. She was in a sling, and states she was told to wean away from that and she has gotten along all right but can't lift or pull with t hat arm. She had diarrhea twice this morning and doesn't want more Paxlovid. Focused Exam Lactate Level 05/25/23 09:56: Lactic Acid Level 1.94 Objective Exam Last Set of Vital Signs Vital Signs Date Time Temp Pulse Resp B/P (MAP) Pulse Ox O2 Delivery O2 Flow Rate FiO2 05/26/23 08:46 87 18 159/77 (104) 96 Room Air 05/26/23 03:59 37.1 Capillary Refill : Less Than 3 Seconds I&O Intake and Output 05/26/23 00:00 Intake Total 3040 ml Balance 3040 ml Intake Oral 1040 ml IV Total 2000 ml # Voids 2 Daily Weight Change No General: Alert, No Acute Distress Lungs: Other (no increased work of breathing) Extremities: Other (left lower leg markedly ttp) Skin: Other (left lateral lower leg with scabbed lesion with erythema surrounding about 5 cm) Psych/Mental Status: Mood NL Results/Procedures Lab Laboratory Tests 05/26/23 05:35: White Blood Count 4.3, Red Blood Count 3.29L, Hemoglobin 10.7L, Hematocrit 34L, Mean Corpuscular Volume 103H, Mean Corpuscular Hemoglobin 33, Mean Corpuscular Hemoglobin Concent 32, Red Cell Distribution Width 13.9, Platelet Count 132, Mean Platelet Volume 10.8, Immature Granulocyte % (Auto) 1, Neutrophils (%) (Auto) 54, Lymphocytes (%) (Auto) 23, Monocytes (%) (Auto) 21H, Eosinophils (%) (Auto) 1, Basophils (%) (Auto) 1, Neutrophils # (Auto) 2.3, Lymphocytes # (Auto) 1.0, Monocytes # (Auto) 0.9, Eosinophils # (Auto) 0.1, Basophils # (Auto) 0.0, Immature Granulocyte # (Auto) 0.0, Neutrophils % (Manual) 55, Lymphocytes % (Manual) 27, Monocytes % (Manual) 15, Eosinophils % (Manual) 2, Band Neutrophils 1, Percent Immature Platelet Fraction 3.2, Anisocytosis SLIGHT, Macrocytosis SLIGHT, Sodium Level 140, Potassium Level 3.3L, Chloride Level 109H, Carbon Dioxide Level 24, Anion Gap 7, Blood Urea Nitrogen 11, Creatinine 0.81, Estimat Glomerular Filtration Rate 75, BUN/Creatinine Ratio 14, Glucose Level 80, Calcium Level 9.2, Corrected Calcium 9.8, Total Bilirubin 0.4, Aspartate Amino Transf (AST/SGOT) 31, Alanine Aminotransferase (ALT/SGPT) 33, Alkaline Phosphatase 106, Total Protein 5.3L, Albumin 3.3 Microbiology 05/25/23 Urine Culture - Preliminary, Resulted Mixed Bacterial Tyra Assessment/Plan Assessment/Plan (1) Cellulitis of left leg Status: Acute Assessment & Plan: After muscle biopsy. Started on cephalexin, appears to improving, but was febrile last night to 39, will follow through tonight, possible d/c tomorrow. Left leg doppler negative for DVT. (2) COVID-19 Status: Acute Assessment & Plan: Appears to be essentially asymptomatic, declines further Paxlovid due to diarrhea. (3) Fracture of neck of right humerus Status: Acute Assessment & Plan: Following with Ortho outpatient, reports plan for follow up as noted in HPI. Qualifiers: (4) HTN (hypertension) Assessment & Plan: Resume home medications (5) Dementia Assessment & Plan: Apparently mild per exam, reports ongoing outpatient work-up (6) DVT prophylaxis Status: Acute Assessment & Plan: Enoxaparin KENNEY MONTESINOS MD May 26, 2023 11:34
[2023-05-26 11:52] VITALS: BP 152/75
[2023-05-26] MEDS ORDERED: LOSA100T4 PO (12:21)
[2023-05-26] MEDS ORDERED: CITA10TA9 PO (12:21)
[2023-05-26] MEDS ORDERED: TRZ50T PO (12:21)
[2023-05-26] MEDS ORDERED: AMLO-250 PO (12:21)
[2023-05-26] MEDS ORDERED: GABA300C PO (12:21)
[2023-05-26] MEDS ORDERED: FAMO20TA5 PO (12:21)
[2023-05-26] MEDS ORDERED: CARV25TA PO (12:21)
[2023-05-26] MEDS ORDERED: ACYC400T21 PO (12:21)
[2023-05-26] MEDS ORDERED: COLC0.6T59 PO (12:21)
[2023-05-26] MEDS ORDERED: ATOR40TA70 PO (12:21)
[2023-05-26] MEDS ORDERED: PRED5DRO17 OS (12:22)
[2023-05-26] MEDS ORDERED: CALC-722 PO (12:25)
[2023-05-26] MEDS ORDERED: LORA10TA76 PO (12:25)
[2023-05-26] MEDS ORDERED: DOCU100T7 PO (12:25)
[2023-05-26] MEDS ORDERED: IRON1TAB97 PO (12:25)
[2023-05-26] MEDS ORDERED: MELA5TAB14 PO (12:25)
[2023-05-26 16:55] VITALS: BP 153/74
[2023-05-26] MEDS: ENOXAPARIN 40 MG/0.4 ML SYRINGE SC SCH (16:58)
[2023-05-26 20:00] VITALS: BP 148/72
[2023-05-26] MEDS: carvediloL 12.5 MG TABLET PO SCH (20:42)
[2023-05-26] MEDS: GABAPENTIN 300 MG CAPSULE PO SCH (20:43)
[2023-05-26] MEDS: ACYCLOVIR 400 MG CAPSULE/TABLET PO SCH (20:43)
[2023-05-26] MEDS: prednisoLONE 1% Ophthalmic Suspension 5 ML BTL OS SCH (20:44)
[2023-05-26] MEDS ORDERED: LORATADINE 10 MG TABLET PO SCH (21:00)
[2023-05-26] MEDS ORDERED: traZODone 50 MG (DESYREL) TAB PO SCH (21:00)
[2023-05-26] MEDS ORDERED: NON-FORMULARY MEDICATION 1 EA EA (Melatonin 5 MG) PO SCH (21:00)
[2023-05-26] MEDS ORDERED: FAMOTIDINE 20 MG TABLET PO SCH (21:00)
[2023-05-26] MEDS ORDERED: IRON CARBONYL PO SCH (21:00)
[2023-05-26] MEDS ORDERED: MELATONIN 10 MG TABLET PO SCH (21:00)
[2023-05-26] MEDS ORDERED: NON-FORMULARY MEDICATION 1 EA EA (Carvedilol 25 MG) PO SCH (21:00)
[2023-05-26] MEDS ORDERED: ASCORBIC ACID PO SCH (21:00)
[2023-05-26 23:43] VITALS: BP 116/68
[2023-05-27] MEDS: ACETAMINOPHEN 325 MG TABLET PO PRN (03:12)
[2023-05-27 03:38] VITALS: BP 130/74
[2023-05-27 06:03] LABS: BASOPHILS % (AUTO) 1 % (0-10); EOSINOPHILS # (AUTO) 0.1 10^3/uL (0.0-0.3); EOSINOPHILS % (AUTO) 1 % (0-10); HEMATOCRIT 32 % (35-52); HEMOGLOBIN 10.7 g/dL (11.5-16.0); LYMPHOCYTES # (AUTO) 1.2 10^3/uL (1.0-4.0); LYMPHOCYTES % (AUTO) 26 % (12-44); MEAN CORPUSCULAR HEMOGLOBIN 33 pg (25-34); MEAN CORPUSCULAR HGB CONC 33 g/dL (32-36); MEAN CORPUSCULAR VOLUME 99 fL (80-99); MEAN PLATELET VOLUME 10.8 fL (9.0-12.2); MONOCYTES # (AUTO) 0.9 10^3/uL (0.0-1.0); MONOCYTES % (AUTO) 19 % (0-12); NEUTROPHILS # (AUTO) 2.5 10^3/uL (1.8-7.8); NEUTROPHILS % (AUTO) 53 % (42-75); PLATELET COUNT 151 10^3/uL (130-400); WHITE BLOOD COUNT 4.7 10^3/uL (4.3-11.0)
[2023-05-27 06:39] LABS: ALBUMIN 3.4 GM/DL (3.2-4.5); BILIRUBIN,TOTAL 0.4 MG/DL (0.1-1.0); CALCIUM 9.4 MG/DL (8.5-10.1); CREATININE SERUM 0.75 MG/DL (0.60-1.30); POTASSIUM 3.3 MMOL/L (3.6-5.0); TOTAL PROTEIN 5.4 GM/DL (6.4-8.2)
[2023-05-27 07:18] VITALS: BP 162/80
[2023-05-27] MEDS ORDERED: FERROUS SULFATE 325 MG (IRON) TABLET PO SCH (08:00)
[2023-05-27] MEDS ORDERED: CALCIUM CARBONATE 600 MG +VITAMIN D TABLET PO SCH (08:00)
[2023-05-27] MEDS ORDERED: CEPH250C PO (08:07)
[2023-05-27] MEDS: CEPHALEXIN 250 MG CAPSULE PO SCH ×2 (08:25→13:33)
[2023-05-27] MEDS: ACYCLOVIR 400 MG CAPSULE/TABLET PO SCH (08:25)
[2023-05-27] MEDS: carvediloL 12.5 MG TABLET PO SCH (08:26)
[2023-05-27] MEDS: GABAPENTIN 300 MG CAPSULE PO SCH ×2 (08:26→13:33)
[2023-05-27] MEDS: SENNOSIDES 8.6 MG TABLET PO SCH (08:27)
[2023-05-27] MEDS: prednisoLONE 1% Ophthalmic Suspension 5 ML BTL OS SCH (08:28)
[2023-05-27] MEDS ORDERED: POTASSIUM CHLORIDE 20 MEQ TABLET PO NR (08:30)
[2023-05-27] MEDS ORDERED: COLCHICINE 0.6 MG TABLET PO SCH (09:00)
[2023-05-27] MEDS ORDERED: VIT D3 PO SCH (09:00)
[2023-05-27] MEDS ORDERED: DOCUSATE SODIUM 100 MG CAPSULE PO SCH (09:00)
[2023-05-27] MEDS ORDERED: CITALOPRAM 10 MG TABLET PO SCH (09:00)
[2023-05-27] MEDS ORDERED: LOSARTAN 100 MG TABLET PO SCH (09:00)
[2023-05-27] MEDS ORDERED: CITRATE PO SCH (09:00)
[2023-05-27] MEDS ORDERED: CALCIUM CARB PO SCH (09:00)
[2023-05-27] MEDS ORDERED: [UNRECOGNIZED DRUG - OTHER] PO SCH (09:00)
[2023-05-27] MEDS ORDERED: amLODIPine 5 MG TABLET PO SCH (09:00)
[2023-05-27] MEDS ORDERED: NON-FORMULARY MEDICATION 1 EA EA (Docusate Sodium (Stool Softener) 100 MG) PO SCH (09:00)
[2023-05-27 11:03] VITALS: BP 93/64
--- NOTE | 2023-05-27 11:15 | Discharge Summary ---
Discharge Summary Hospital Course Problems/Diagnosis: (1) Cellulitis of left leg Status: Acute Assessment & Plan: After muscle biopsy. Started on cephalexin, and had improvement throughout stay, discharged to complete course. Left leg doppler negative for DVT. (2) COVID-19 Status: Acute Assessment & Plan: Appears to be essentially asymptomatic, declined further Paxlovid due to diarrhea. (3) Fracture of neck of right humerus Status: Acute Assessment & Plan: Following with Ortho outpatient, reports plan for follow up later this month. Qualifiers: (4) HTN (hypertension) Assessment & Plan: Resumed home medications (5) Dementia Assessment & Plan: Apparently mild per exam, reports ongoing outpatient work-up Hospital Course Date of Admission: May 25, 2023 at 15:19 Admission Diagnosis : Family Physician/Provider: No,Local Physician Date of Discharge: 05/27/23 Discharge Diagnosis: See problem list Hospital Course: See problem list Labs and Pending Lab Test: Laboratory Tests 05/27/23 05:13: White Blood Count 4.7, Red Blood Count 3.25L, Hemoglobin 10.7L, Hematocrit 32L, Mean Corpuscular Volume 99, Mean Corpuscular Hemoglobin 33, Mean Corpuscular Hemoglobin Concent 33, Red Cell Distribution Width 13.5, Platelet Count 151, Mean Platelet Volume 10.8, Immature Granulocyte % (Auto) 0, Neutrophils (%) (Auto) 53, Lymphocytes (%) (Auto) 26, Monocytes (%) (Auto) 19H, Eosinophils (%) (Auto) 1, Basophils (%) (Auto) 1, Neutrophils # (Auto) 2.5, Lymphocytes # (Auto) 1.2, Monocytes # (Auto) 0.9, Eosinophils # (Auto) 0.1, Basophils # (Auto) 0.0, Immature Granulocyte # (Auto) 0.0, Sodium Level 138, Potassium Level 3.3L, Chloride Level 105, Carbon Dioxide Level 24, Anion Gap 9, Blood Urea Nitrogen 8, Creatinine 0.75, Estimat Glomerular Filtration Rate 82, BUN/Creatinine Ratio 11, Glucose Level 81, Calcium Level 9.4, Corrected Calcium 9.9, Total Bilirubin 0.4, Aspartate Amino Transf (AST/SGOT) 24, Alanine Aminotransferase (ALT/SGPT) 28, Alkaline Phosphatase 100, Total Protein 5.4L, Albumin 3.4 Microbiology 05/25/23 Urine Culture - Final, Complete Mixed Bacterial Tyra See Comments 05/25/23 Blood Culture - Preliminary, Resulted Home Meds Active Cephalexin 250 Mg Capsule 500 Mg PO QID 7 Days Reported Vitron-C Tablet (Iron,Carbonyl/Ascorbic Acid) 65 Mg Iron-125 Mg Tablet.dr 1 Each PO HS Claritin (Loratadine) 10 Mg Tablet 10 Mg PO HS Melatonin 5 Mg Tablet 5 Mg PO HS Stool Softener (Docusate Sodium) 100 Mg Tablet 100 Mg PO DAILY Citracal + D ER Tablet (Calcium Carb & Citrate/Vit D3) 600MG-12.5 Tablet.er 1 Each PO DAILY Prednisolone Acetate 1 % Drops.susp 1 Drop OS BID Neurontin (Gabapentin) 300 Mg Capsule 300 Mg PO TID Cozaar (Losartan Potassium) 100 Mg Tablet 100 Mg PO DAILY Amlodipine Besylate 5 Mg Tablet 5 Mg PO DAILY Acyclovir 400 Mg Tablet 400 Mg PO BID Citalopram HBr (Citalopram Hydrobromide) 10 Mg Tablet 10 Mg PO DAILY Colchicine 0.6 Mg Tablet 0.6 Mg PO DAILY Famotidine 20 Mg Tablet 20 Mg PO BID Atorvastatin Calcium 40 Mg Tablet 40 Mg PO HS Trazodone HCl 50 Mg Tablet 25 Mg PO HS TAKES 1/2 OF (25MG) TAB Carvedilol 25 Mg Tablet 25 Mg PO BID Assessment/Pt DC Instructions Follow up with primary doctor within a week of discharge. Discharge Diet: No Restrictions Activity as Tolerated: Yes Discharge Physical Examination Allergies: Coded Allergies: Sulfa (Sulfonamide Antibiotics) (Verified Allergy, Unknown, 06/27/21) adhesive tape (Verified Allergy, Unknown, BLISTERS, 06/27/21) hydrocodone (Verified Allergy, Unknown, 06/27/21) General Appearance: No Apparent Distress, WD/WN Respiratory: Lungs Clear, Normal Breath Sounds Cardiovascular: Regular Rate, Rhythm, No Murmur Gastrointestinal: Normal Bowel Sounds, Non Tender, Soft Skin: Other (mild erythema to left lower lateral leg about 4 cm in diameter, decreased pain and swelling from day prior) Neurologic/Psychiatric: Alert, Normal Mood/Affect KENNEY MONTESINOS MD May 27, 2023 11:15
[2023-05-27 15:41] VITALS: BP 115/70
[2023-05-27] MEDS ORDERED: FAMOTIDINE 20 MG TABLET PO SCH (21:00)
== END 2023-05-27 16:02 | disposition home or self-care (01) ==
LOC: EDUNIT# 09:37 → ER 09:38 → 4TH 15:19
PROVIDERS: ADMIT Internal Medicine; ATTEND Family Medicine
DX: U07.1 COVID-19 (principal); L03.116 Cellulitis of left lower limb; S42.291A Other displaced fracture of upper end of right humerus, initial encounter for closed fracture; I10 Essential (primary) hypertension; F03.90 Unspecified dementia, unspecified severity, without behavioral disturbance, psychotic disturbance, mood disturbance, and anxiety
CPT/HCPCS: 36415; 71045; 73590; 80053; 81000; 83605; 85007; 85025; 85027; 85379; 85610; 85652; 85730; 87040; 87088; 87636; 96372; G0378